=== PATIENT | male | born 1965 | race African-American/Black ===

== ENCOUNTER 2019-01-02 10:43 | Emergency (ER) | payer MEDICAID ==
[~2019-01-02] VITALS: Ht 162.6 cm; Wt 64.0 kg
[2019-01-02] MEDS ORDERED: TETANUS, DIPHTHERIA, PERTUSSIS VAC/PF 0.5ML (>7YR OLD) IM ONE (11:15)
[2019-01-02] MEDS ORDERED: LIDOCAINE 1%/EPI 1:100,000 10 ML VIAL IJ ONE (11:15)
[2019-01-02] MEDS ORDERED: LIDOCAINE HCL/EPINEPHRINE 1%-EPI 1:100,000 20 ML VIAL INFIL ONE (11:30)
[2019-01-02 14:00] VITALS: BP 136/89
[2019-01-02 15:05] LABS: BASOPHILS % 0.5 % (0.0-2.0); EOSINOPHILS % 0.1 % (0.0-5.0); HEMOGLOBIN. 14.2 g/dL (14.0-18.0); LYMPHOCYTES % 9.5 % (20.0-50.0); MEAN CORPUSCULAR HEMOGLOBIN 30.3 pg (28.0-32.0); MEAN CORPUSCULAR VOLUME 89.5 fL (80.0-94.0); MEAN PLATELET VOLUME 7.1 fl (7.4-10.4); NEUTROPHILS % 84.9 % (40.0-76.0); PLATELET 260 x1000/uL (130-400); RED BLOOD CELL COUNT 4.69 mill/uL (4.7-6.1); RED CELL DISTRIBUTION WIDTH 14.9 % (11.6-14.6)
[2019-01-02 15:06] LABS: CHLORIDE 100 mEq/L (98-107)
[2019-01-02 15:10] LABS: CLARITY URINE CLEAR (CLEAR); COLOR URINE YELLOW (YELLOW); KETONES URINE NEGATIVE (NEGATIVE); LEUKOCYTE ESTERASE URINE NEGATIVE (NEGATIVE); NITRITE URINE NEGATIVE (NEGATIVE); OCCULT BLOOD URINE NEGATIVE (NEGATIVE); PROTEIN URINE NEGATIVE (NEGATIVE); UROBILINOGEN URINE 0.2 E.U./dL (0.2-1.0)
[2019-01-02 15:11] LABS: ETHANOL BLOOD < 10 mg/dL
[2019-01-02 15:38] LABS: *AMPHETAMINES SCREEN URINE NEGATIVE (NEGATIVE); *BARBITURATES SCREEN URINE NEGATIVE (NEGATIVE); *BENZODIAZEPINES SCREEN URINE NEGATIVE (NEGATIVE); *COCAINE SCREEN URINE NEGATIVE (NEGATIVE); METHADONE URINE SCREEN NEGATIVE (NEGATIVE); OPIATES URINE SCREEN NEGATIVE (NEGATIVE)
[2019-01-02 15:39] LABS: CANNABINOID URINE SCREEN NEGATIVE (NEGATIVE); PHENCYCLIDINE URINE SCREEN NEGATIVE (NEGATIVE)
== END 2019-01-02 16:11 | disposition home or self-care (01) ==
LOC: ER 10:43
DX: S01.01XA Laceration without foreign body of scalp, initial encounter (principal); I10 Essential (primary) hypertension; G40.909 Epilepsy, unspecified, not intractable, without status epilepticus; R62.50 Unspecified lack of expected normal physiological development in childhood; W07.XXXA Fall from chair, initial encounter; Y93.89 Activity, other specified; Y92.89 Other specified places as the place of occurrence of the external cause; Z23 Encounter for immunization
CPT/HCPCS: 12004; 36415; 70450; 80053; 80305; 80320; 81003; 85025; 90471; 90715; 99284; A4217; J3490; Z7610; G0480

== ENCOUNTER 2019-01-10 07:44 | Emergency (ER) | payer MEDICAID ==
[~2019-01-10] VITALS: Ht 165.1 cm; Wt 65.0 kg
[2019-01-10 09:16] LABS: HEMATOCRIT. 37.5 % (42.0-52.0); HEMOGLOBIN. 12.7 g/dL (14.0-18.0); MEAN CORPUSCULAR HEMOGLOBIN 30.3 pg (28.0-32.0); MEAN CORPUSCULAR VOLUME 89.4 fL (80.0-94.0); MEAN PLATELET VOLUME 7.6 fl (7.4-10.4); PLATELET 282 x1000/uL (130-400); RED CELL DISTRIBUTION WIDTH 14.4 % (11.6-14.6)
[2019-01-10 09:41] LABS: PLATELET ESTIMATE NORMAL
[2019-01-10 09:49] LABS: CHLORIDE 96 mEq/L (98-107)
[2019-01-10 16:07] VITALS: BP 116/81
== END 2019-01-10 16:00 | disposition home or self-care (01) ==
LOC: ER 07:44
DX: G40.909 Epilepsy, unspecified, not intractable, without status epilepticus (principal); Z48.02 Encounter for removal of sutures; F79 Unspecified intellectual disabilities
CPT/HCPCS: 36415; 73590; 93971; 99284

== ENCOUNTER 2021-01-22 12:19 | Inpatient (IN) | payer MEDICAID, OTHER ==
[~2021-01-22] VITALS: Ht 167.6 cm; Wt 52.2 kg
[2021-01-22 14:30] LABS: BASOPHILS % 0.2 % (0.0-2.0); HEMATOCRIT. 45.5 % (42.0-52.0); HEMOGLOBIN. 14.9 g/dL (14.0-18.0); LYMPHOCYTES % 7.4 % (20.0-50.0); MEAN CORPUSCULAR HEMOGLOBIN 29.7 pg (28.0-32.0); MEAN CORPUSCULAR VOLUME 90.5 fL (80.0-94.0); MEAN PLATELET VOLUME 7.9 fl (7.4-10.4); NEUTROPHILS % 85.4 % (40.0-76.0); PLATELET 230 x1000/uL (130-400); RED BLOOD CELL COUNT 5.03 mill/uL (4.7-6.1); RED CELL DISTRIBUTION WIDTH 15.5 % (11.6-14.6)
[2021-01-22 14:33] LABS: CHLORIDE 108 mEq/L (98-107)
[2021-01-22] MEDS ORDERED: SODIUM CHLORIDE 0.9% 1,000 ML IV ONE (18:45)
[2021-01-22] MEDS ORDERED: ENOXAPARIN 60MG/0.6ML SYR SUBCUT ONE (19:30)
[2021-01-22] MEDS ORDERED: SODIUM CHLORIDE 0.9% 1,000 ML IV NR (19:45)
[2021-01-22] MEDS ORDERED: PIPERACILLIN/TAZ 3.375G PREMIX 50 ML IV ONE (19:45)
[2021-01-22] MEDS ORDERED: LEVOFLOXACIN 750MG PREMIX 150 ML IV ONE (19:45)
[2021-01-23] VITALS (12 sets, daily range): BP systolic 90–116; BP diastolic 41–76
[2021-01-23] MEDS ORDERED: DEXTROSE 50% WATER 50ML SYRINGE IV PRN (05:15)
[2021-01-23] MEDS: BLOOD SUGAR DIAGNOSTIC STRIP TEST SCH ×4 (07:30→20:30)
[2021-01-23] MEDS ORDERED: ACETAMINOPHEN 650MG SUPP PR PRN (07:30)
[2021-01-23] MEDS: INSULIN LISPRO 100 UNITS/ML SUBCUT SCH ×4 (08:00→21:00)
[2021-01-23] MEDS ORDERED: ENOXAPARIN 40MG/0.4ML SYR SUBCUT SCH (09:00)
[2021-01-23 09:44] LABS: HEMOGLOBIN. 12.2 g/dL (14.0-18.0); MEAN CORPUSCULAR HEMOGLOBIN 29.2 pg (28.0-32.0); MEAN CORPUSCULAR VOLUME 91.5 fL (80.0-94.0); MEAN PLATELET VOLUME 8.6 fl (7.4-10.4); PLATELET 137 x1000/uL (130-400); RED BLOOD CELL COUNT 4.16 mill/uL (4.7-6.1); RED CELL DISTRIBUTION WIDTH 15.4 % (11.6-14.6)
[2021-01-23 10:10] LABS: CHLORIDE 114 mEq/L (98-107)
[2021-01-23 10:19] LABS: LDL CHOLESTEROL 35 mg/dL (5-100)
[2021-01-23 10:20] LABS: HDL CHOLESTEROL 61 mg/dL (40-59)
[2021-01-23] MEDS: PIPERACILLIN/TAZOBACTAM 3.375 G in DEXTROSE 5% WATER 50 ML IV SCH ×3 (10:22→22:27)
[2021-01-23 10:31] LABS: BG BASE EXCESS 0.4 mmol/L (-2.0-2.0); BG CARBOXYHEMOGLOBIN 0.3 % (0.5-1.5); BG DEOXYHEMOGLOBIN 0.8 % (0.0-5.0); BG FRACTION INSPIRED OXYGEN 100; BG HCO3 ACT 23.5 mmol/L (22.0-26.0); BG METHEMOGLOBIN 0.7 % (0.0-1.5); BG OXYGEN SATURATION 99.2 % (92.0-98.5); BG OXYHEMOGLOBIN 98.2 % (94.0-97.0); BG PCO2 33.3 mmHg (35.0-45.0); BG PH 7.467 (7.350-7.450); BG PO2 229.7 mmHg (75.0-100.0); BG SAMPLE SITE RIGHT RADIAL; BG TOTAL HEMOGLOBIN 13.2 g/dL (12.0-18.0); BG VENT MODE MASK - BIPAP
[2021-01-23] MEDS: IPRATROPIUM/ALBUTEROL 0.5-3(2.5)MG/3ML NEB HHN SCH ×3 (12:28→20:40)
[2021-01-23] MEDS: SODIUM CHLORIDE 0.45% 1,000 ML IV SCH (14:00)
[2021-01-23 15:47] LABS: TOTAL IRON BINDING CAPACITY 369 ug/dL (250-450)
[2021-01-23] MEDS: VANCOMYCIN 1 G PREMIX 200 ML IV SCH ×2 (16:08→22:28)
[2021-01-23] MEDS: ACETYLCYSTEINE 100MG/ML 10% VIAL 4ML INH SCH (16:20)
[2021-01-23 16:21] LABS: PLATELET ESTIMATE NORMAL
[2021-01-23 16:27] LABS: FOLIC ACID (FOLATE) SERUM 5.9 ng/mL (>5.38)
[2021-01-23] MEDS: LEVETIRACETAM 500MG PREMIX 100 ML IV SCH (20:29)
[2021-01-23] MEDS: ENOXAPARIN 60MG/0.6ML SYR SUBCUT SCH (20:35)
[2021-01-23] MEDS ORDERED: DOCU-138 PO (23:29)
[2021-01-23] MEDS ORDERED: FE300LUD PO (23:29)
[2021-01-23] MEDS ORDERED: LIP40 PO (23:29)
[2021-01-23] MEDS ORDERED: IBUP-2029 PO (23:29)
[2021-01-23] MEDS ORDERED: FLUO40CA49 PO (23:29)
[2021-01-24] VITALS (99 sets, daily range): BP systolic 52–140; BP diastolic 23–94
[2021-01-24] MEDS: IPRATROPIUM/ALBUTEROL 0.5-3(2.5)MG/3ML NEB HHN SCH ×6 (00:15→20:52)
[2021-01-24 01:30] LABS: HEMATOCRIT. 34.8 % (42.0-52.0); HEMOGLOBIN. 11.6 g/dL (14.0-18.0); MEAN CORPUSCULAR HEMOGLOBIN 29.8 pg (28.0-32.0); MEAN CORPUSCULAR VOLUME 89.5 fL (80.0-94.0); MEAN PLATELET VOLUME 9.1 fl (7.4-10.4); PLATELET 127 x1000/uL (130-400); RED BLOOD CELL COUNT 3.89 mill/uL (4.7-6.1); RED CELL DISTRIBUTION WIDTH 15.6 % (11.6-14.6)
[2021-01-24] MEDS ORDERED: ALBUMIN HUMAN 25GM/100ML (25%) IV ONE (02:15)
[2021-01-24] MEDS ORDERED: NOREPINEPHRINE 8MG/250ML PMX 250 ML IV PRN (03:30)
[2021-01-24] MEDS ORDERED: NOREPINEPHRINE 8 MG in DEXTROSE 5% WATER 250 ML IV PRN (03:30)
[2021-01-24 03:32] LABS: PLATELET ESTIMATE DECREASED
[2021-01-24] MEDS: SODIUM CHLORIDE 0.45% 1,000 ML IV SCH (04:44)
[2021-01-24 04:56] LABS: HEMATOCRIT. 31.1 % (42.0-52.0); MEAN CORPUSCULAR HEMOGLOBIN 29.3 pg (28.0-32.0); MEAN CORPUSCULAR VOLUME 91.1 fL (80.0-94.0); MEAN PLATELET VOLUME 8.8 fl (7.4-10.4); PLATELET 170 x1000/uL (130-400); RED BLOOD CELL COUNT 3.41 mill/uL (4.7-6.1); RED CELL DISTRIBUTION WIDTH 15.2 % (11.6-14.6)
[2021-01-24] MEDS: PIPERACILLIN/TAZOBACTAM 3.375 G in DEXTROSE 5% WATER 50 ML IV SCH ×3 (05:42→21:22)
[2021-01-24 05:45] LABS: BG BASE EXCESS -4.5 mmol/L (-2.0-2.0); BG CARBOXYHEMOGLOBIN 0.3 % (0.5-1.5); BG DEOXYHEMOGLOBIN 2.7 % (0.0-5.0); BG FRACTION INSPIRED OXYGEN 100; BG HCO3 ACT 20.9 mmol/L (22.0-26.0); BG METHEMOGLOBIN 0.4 % (0.0-1.5); BG OXYGEN SATURATION 97.3 % (92.0-98.5); BG OXYHEMOGLOBIN 96.6 % (94.0-97.0); BG PCO2 39.5 mmHg (35.0-45.0); BG PH 7.341 (7.350-7.450); BG PO2 99.9 mmHg (75.0-100.0); BG SAMPLE SITE RIGHT BRACHIAL; BG TOTAL HEMOGLOBIN 11.2 g/dL (12.0-18.0); BG VENT MODE MASK - BIPAP
[2021-01-24] MEDS ORDERED: VASOPRESSIN 20 UNIT in SODIUM CHLORIDE 0.9% 99 ML IV PRN (06:00)
[2021-01-24] MEDS ORDERED: NOREPINEPHRINE 32 MG in DEXT 5% WATER 218 ML IV PRN (08:00)
[2021-01-24] MEDS: THIAMINE HCL 100MG TABLET PO SCH (08:16)
[2021-01-24] MEDS: ENOXAPARIN 60MG/0.6ML SYR SUBCUT SCH (08:16)
[2021-01-24] MEDS: FOLIC ACID 1MG TABLET PO SCH (08:16)
[2021-01-24] MEDS: POLYETHYLENE GLYCOL 3350 (17GM) 1 DOSE PACK PO SCH (08:17)
[2021-01-24] MEDS: LEVETIRACETAM 500MG PREMIX 100 ML IV SCH ×2 (08:17→20:26)
[2021-01-24] MEDS: INSULIN LISPRO 100 UNITS/ML SUBCUT SCH ×3 (08:19→17:15)
[2021-01-24] MEDS: BLOOD SUGAR DIAGNOSTIC STRIP TEST SCH ×4 (08:19→23:44)
[2021-01-24] MEDS: PHENYLEPHRINE 100 MG in DEXT 5% WATER 240 ML IV PRN ×2 (08:27→19:18)
[2021-01-24] MEDS: ACETYLCYSTEINE 100MG/ML 10% VIAL 4ML INH SCH (08:50)
[2021-01-24 09:30] LABS: PLATELET ESTIMATE NORMAL
[2021-01-24] MEDS ORDERED: IOHEXOL-350 100 ML BOTTLE ONE (10:29)
[2021-01-24] MEDS: DEXTROSE 5% WATER 1,000 ML IV SCH (12:25)
[2021-01-24] MEDS ORDERED: METRONIDAZOLE 500 MG PREMIX 100 ML IV SCH (12:30)
[2021-01-24 13:52] LABS: CREATINE KINASE 1731 IU/L (39-308)
[2021-01-24] MEDS ORDERED: SODIUM CHLORIDE 3% FOR INH 15ML VIAL NEB INH SCH (14:00)
[2021-01-24 17:48] LABS: CLARITY URINE CLEAR (CLEAR); COLOR URINE YELLOW (YELLOW); KETONES URINE NEGATIVE (NEGATIVE); LEUKOCYTE ESTERASE URINE NEGATIVE (NEGATIVE); NITRITE URINE NEGATIVE (NEGATIVE); OCCULT BLOOD URINE 2+ (NEGATIVE); PROTEIN URINE 1+ (NEGATIVE); SPECIFIC GRAVITY URINE 1.057 (1.005-1.030)
[2021-01-24 18:24] LABS: HEMATOCRIT. 27.6 % (42.0-52.0); HEMOGLOBIN. 8.9 g/dL (14.0-18.0); MEAN CORPUSCULAR HEMOGLOBIN 29.1 pg (28.0-32.0); MEAN CORPUSCULAR VOLUME 90.4 fL (80.0-94.0); MEAN PLATELET VOLUME 9.4 fl (7.4-10.4); PLATELET 158 x1000/uL (130-400); RED BLOOD CELL COUNT 3.05 mill/uL (4.7-6.1); RED CELL DISTRIBUTION WIDTH 15.4 % (11.6-14.6)
[2021-01-24 21:51] LABS: PLATELET ESTIMATE NORMAL
[2021-01-25] VITALS (93 sets, daily range): BP systolic 81–133; BP diastolic 34–77
[2021-01-25] MEDS: INSULIN LISPRO 100 UNITS/ML SUBCUT SCH ×4 (00:02→18:00)
[2021-01-25] MEDS: IPRATROPIUM/ALBUTEROL 0.5-3(2.5)MG/3ML NEB HHN SCH ×7 (01:17→20:25)
[2021-01-25] MEDS: ACETYLCYSTEINE 100MG/ML 10% VIAL 4ML INH SCH ×3 (01:18→17:25)
[2021-01-25] MEDS: PIPERACILLIN/TAZOBACTAM 3.375 G in DEXTROSE 5% WATER 50 ML IV SCH ×3 (05:41→22:12)
[2021-01-25 05:42] LABS: HEMATOCRIT. 27.3 % (42.0-52.0); HEMOGLOBIN. 8.9 g/dL (14.0-18.0); MEAN CORPUSCULAR HEMOGLOBIN 29.5 pg (28.0-32.0); MEAN CORPUSCULAR VOLUME 91.2 fL (80.0-94.0); MEAN PLATELET VOLUME 9.4 fl (7.4-10.4); PLATELET 150 x1000/uL (130-400); RED CELL DISTRIBUTION WIDTH 15.2 % (11.6-14.6)
[2021-01-25] MEDS: BLOOD SUGAR DIAGNOSTIC STRIP TEST SCH ×3 (05:42→18:01)
[2021-01-25 05:52] LABS: CHLORIDE 109 mEq/L (98-107)
[2021-01-25] MEDS ORDERED: POTASSIUM CHLORIDE 20MEQ/PACKET PO SCH (06:15)
[2021-01-25] MEDS: PHENYLEPHRINE 100 MG in DEXT 5% WATER 240 ML IV PRN ×2 (07:16→18:00)
[2021-01-25] MEDS: DEXTROSE 5% WATER 1,000 ML IV SCH (07:36)
[2021-01-25] MEDS ORDERED: LIDOCAINE HCL 1% 30ML VIAL (10MG/ML) ONE (08:19)
[2021-01-25] MEDS: LEVETIRACETAM 500MG PREMIX 100 ML IV SCH ×2 (08:33→20:54)
[2021-01-25] MEDS: ENOXAPARIN 30MG/0.3ML SYR SUBCUT SCH (08:33)
[2021-01-25] MEDS: THIAMINE HCL 100MG TABLET PO SCH (08:34)
[2021-01-25] MEDS: POLYETHYLENE GLYCOL 3350 (17GM) 1 DOSE PACK PO SCH (08:34)
[2021-01-25] MEDS: FOLIC ACID 1MG TABLET PO SCH (08:34)
[2021-01-25] MEDS ORDERED: ENOXAPARIN 40MG/0.4ML SYR SUBCUT SCH (09:00)
[2021-01-25] MEDS ORDERED: LACTULOSE 20G/30ML UDC PO SCH (09:45)
[2021-01-25] MEDS: PANTOPRAZOLE SODIUM 40 MG/VIAL IV SCH (10:10)
[2021-01-25] MEDS ORDERED: FUROSEMIDE 40MG/4ML VIAL IVP SCH (10:45)
[2021-01-25] MEDS: METOCLOPRAMIDE HCL 10MG/2ML VIAL IV SCH ×2 (11:13→18:01)
[2021-01-25] MEDS: VANCOMYCIN 500 MG PREMIX 100 ML IV SCH (12:34)
[2021-01-25 13:04] LABS: PLATELET ESTIMATE NORMAL
[2021-01-25 19:58] LABS: HEMATOCRIT. 22.8 % (42.0-52.0); HEMOGLOBIN. 7.8 g/dL (14.0-18.0); MEAN CORPUSCULAR HEMOGLOBIN 29.8 pg (28.0-32.0); MEAN CORPUSCULAR VOLUME 86.7 fL (80.0-94.0); MEAN PLATELET VOLUME 9.2 fl (7.4-10.4); PLATELET 142 x1000/uL (130-400); RED BLOOD CELL COUNT 2.62 mill/uL (4.7-6.1)
[2021-01-25 20:46] LABS: PLATELET ESTIMATE NORMAL
[2021-01-25 23:36] LABS: HEMATOCRIT. 22.7 % (42.0-52.0); HEMOGLOBIN. 7.7 g/dL (14.0-18.0); MEAN CORPUSCULAR HEMOGLOBIN 29.7 pg (28.0-32.0); MEAN CORPUSCULAR VOLUME 87.2 fL (80.0-94.0); MEAN PLATELET VOLUME 10.2 fl (7.4-10.4); PLATELET 115 x1000/uL (130-400)
[2021-01-26] VITALS (95 sets, daily range): BP systolic 82–123; BP diastolic 50–88
[2021-01-26] MEDS: BLOOD SUGAR DIAGNOSTIC STRIP TEST SCH ×4 (00:04→17:19)
[2021-01-26] MEDS: VANCOMYCIN 500 MG PREMIX 100 ML IV SCH ×2 (00:12→08:26)
[2021-01-26] MEDS: METOCLOPRAMIDE HCL 10MG/2ML VIAL IV SCH ×4 (00:12→17:45)
[2021-01-26] MEDS: INSULIN LISPRO 100 UNITS/ML SUBCUT SCH ×4 (00:14→17:45)
[2021-01-26] MEDS: ACETYLCYSTEINE 100MG/ML 10% VIAL 4ML INH SCH ×3 (00:42→16:18)
[2021-01-26] MEDS: IPRATROPIUM/ALBUTEROL 0.5-3(2.5)MG/3ML NEB HHN SCH ×6 (00:42→20:29)
[2021-01-26 02:29] LABS: PLATELET ESTIMATE DECREASED
[2021-01-26] MEDS: PIPERACILLIN/TAZOBACTAM 3.375 G in DEXTROSE 5% WATER 50 ML IV SCH ×3 (05:53→22:18)
[2021-01-26 06:01] LABS: CHLORIDE 104 mEq/L (98-107); HEMATOCRIT. 21.7 % (42.0-52.0); HEMOGLOBIN. 7.4 g/dL (14.0-18.0); MEAN CORPUSCULAR HEMOGLOBIN 29.7 pg (28.0-32.0); MEAN CORPUSCULAR VOLUME 87.3 fL (80.0-94.0); MEAN PLATELET VOLUME 9.6 fl (7.4-10.4); PLATELET 137 x1000/uL (130-400); RED BLOOD CELL COUNT 2.49 mill/uL (4.7-6.1)
[2021-01-26 06:08] LABS: PHOSPHORUS 1.1 mg/dL (2.5-4.9)
[2021-01-26] MEDS: PHENYLEPHRINE 100 MG in DEXT 5% WATER 240 ML IV PRN ×2 (06:08→17:45)
[2021-01-26] MEDS: FOLIC ACID 1MG TABLET PO SCH (08:21)
[2021-01-26] MEDS: PANTOPRAZOLE SODIUM 40 MG/VIAL IV SCH (08:21)
[2021-01-26] MEDS: THIAMINE HCL 100MG TABLET PO SCH (08:21)
[2021-01-26] MEDS: POLYETHYLENE GLYCOL 3350 (17GM) 1 DOSE PACK PO SCH (08:21)
[2021-01-26] MEDS: LEVETIRACETAM 500MG PREMIX 100 ML IV SCH ×2 (08:21→21:47)
[2021-01-26] MEDS ORDERED: POTASSIUM PHOS,M-BASIC-D-BASIC 30 MMOL in SODIUM CHLORIDE 0.9% 500 ML IV ONE (09:00)
[2021-01-26 10:09] LABS: ANTI-NUCLEAR ANTIBODIES DIRECT Negative (Negative)
[2021-01-26 17:10] LABS: PLATELET ESTIMATE NORMAL
[2021-01-27] VITALS (102 sets, daily range): BP systolic 83–154; BP diastolic 43–94
[2021-01-27] MEDS: BLOOD SUGAR DIAGNOSTIC STRIP TEST SCH ×5 (00:03→23:28)
[2021-01-27] MEDS: INSULIN LISPRO 100 UNITS/ML SUBCUT SCH ×5 (00:04→23:28)
[2021-01-27] MEDS: METOCLOPRAMIDE HCL 10MG/2ML VIAL IV SCH ×5 (00:05→23:28)
[2021-01-27] MEDS: ACETYLCYSTEINE 100MG/ML 10% VIAL 4ML INH SCH ×3 (00:29→16:13)
[2021-01-27] MEDS: IPRATROPIUM/ALBUTEROL 0.5-3(2.5)MG/3ML NEB HHN SCH ×6 (00:29→21:13)
[2021-01-27] MEDS: PHENYLEPHRINE 100 MG in DEXT 5% WATER 240 ML IV PRN ×2 (05:44→16:26)
[2021-01-27 05:49] LABS: HEMATOCRIT. 21.4 % (42.0-52.0); HEMOGLOBIN. 7.2 g/dL (14.0-18.0); MEAN CORPUSCULAR HEMOGLOBIN 29.6 pg (28.0-32.0); MEAN CORPUSCULAR VOLUME 88.2 fL (80.0-94.0); MEAN PLATELET VOLUME 9.6 fl (7.4-10.4); PLATELET 135 x1000/uL (130-400); RED BLOOD CELL COUNT 2.42 mill/uL (4.7-6.1)
[2021-01-27 06:05] LABS: CHLORIDE 104 mEq/L (98-107)
[2021-01-27] MEDS: PIPERACILLIN/TAZOBACTAM 3.375 G in DEXTROSE 5% WATER 50 ML IV SCH ×3 (06:21→21:07)
[2021-01-27 08:22] LABS: BG BASE EXCESS 5.9 mmol/L (-2.0-2.0); BG CARBOXYHEMOGLOBIN 0.3 % (0.5-1.5); BG FRACTION INSPIRED OXYGEN 40; BG HCO3 ACT 29.9 mmol/L (22.0-26.0); BG METHEMOGLOBIN 0.6 % (0.0-1.5); BG OXYGEN SATURATION 89.9 % (92.0-98.5); BG OXYHEMOGLOBIN 89.1 % (94.0-97.0); BG PCO2 40.8 mmHg (35.0-45.0); BG PH 7.483 (7.350-7.450); BG PO2 55.6 mmHg (75.0-100.0); BG SAMPLE SITE LEFT RADIAL; BG TOTAL HEMOGLOBIN 7.9 g/dL (12.0-18.0); BG TOTAL RESPIRATORY RATE 20 b/min; BG VENT MODE MASK - BIPAP
[2021-01-27] MEDS ORDERED: POTASSIUM PHOS,M-BASIC-D-BASIC 20 MMOL in DEXT 5% WATER 243.3333 ML IV SCH (10:00)
[2021-01-27] MEDS: THIAMINE HCL 100MG TABLET PO SCH (10:02)
[2021-01-27] MEDS: FOLIC ACID 1MG TABLET PO SCH (10:02)
[2021-01-27] MEDS: LEVETIRACETAM 500MG PREMIX 100 ML IV SCH ×2 (10:02→20:07)
[2021-01-27] MEDS: PANTOPRAZOLE SODIUM 40 MG/VIAL IV SCH (10:02)
[2021-01-27] MEDS: POLYETHYLENE GLYCOL 3350 (17GM) 1 DOSE PACK PO SCH (10:06)
[2021-01-27 13:44] LABS: PLATELET ESTIMATE NORMAL
[2021-01-27 17:04] LABS: BG BASE EXCESS 8.5 mmol/L (-2.0-2.0); BG CARBOXYHEMOGLOBIN 0.3 % (0.5-1.5); BG DEOXYHEMOGLOBIN 0.6 % (0.0-5.0); BG FRACTION INSPIRED OXYGEN 100; BG HCO3 ACT 32.8 mmol/L (22.0-26.0); BG METHEMOGLOBIN 0.3 % (0.0-1.5); BG OXYGEN SATURATION 99.4 % (92.0-98.5); BG OXYHEMOGLOBIN 98.8 % (94.0-97.0); BG PCO2 44.8 mmHg (35.0-45.0); BG PH 7.482 (7.350-7.450); BG PO2 354.9 mmHg (75.0-100.0); BG SAMPLE SITE RIGHT BRACHIAL; BG TOTAL HEMOGLOBIN 8.1 g/dL (12.0-18.0); BG TOTAL RESPIRATORY RATE 22 b/min; BG VENT MODE MASK - BIPAP
[2021-01-28] VITALS (97 sets, daily range): BP systolic 87–129; BP diastolic 52–73
[2021-01-28] MEDS: ACETYLCYSTEINE 100MG/ML 10% VIAL 4ML INH SCH ×3 (00:39→15:44)
[2021-01-28] MEDS: IPRATROPIUM/ALBUTEROL 0.5-3(2.5)MG/3ML NEB HHN SCH ×6 (00:39→20:16)
[2021-01-28 05:50] LABS: MEAN CORPUSCULAR HEMOGLOBIN 29.3 pg (28.0-32.0); MEAN CORPUSCULAR VOLUME 88.3 fL (80.0-94.0); MEAN PLATELET VOLUME 9.4 fl (7.4-10.4); PLATELET 188 x1000/uL (130-400); RED BLOOD CELL COUNT 2.35 mill/uL (4.7-6.1); RED CELL DISTRIBUTION WIDTH 15.3 % (11.6-14.6)
[2021-01-28] MEDS: INSULIN LISPRO 100 UNITS/ML SUBCUT SCH ×3 (06:00→18:00)
[2021-01-28 06:01] LABS: CHLORIDE 104 mEq/L (98-107)
[2021-01-28 06:15] LABS: HEMATOCRIT. 20.7 % (42.0-52.0); HEMOGLOBIN. 6.9 g/dL (14.0-18.0)
[2021-01-28] MEDS: BLOOD SUGAR DIAGNOSTIC STRIP TEST SCH ×4 (06:38→23:39)
[2021-01-28] MEDS: PIPERACILLIN/TAZOBACTAM 3.375 G in DEXTROSE 5% WATER 50 ML IV SCH ×3 (06:41→21:09)
[2021-01-28] MEDS: METOCLOPRAMIDE HCL 10MG/2ML VIAL IV SCH ×4 (06:41→23:39)
[2021-01-28] MEDS: POLYETHYLENE GLYCOL 3350 (17GM) 1 DOSE PACK PO SCH (09:00)
[2021-01-28] MEDS: THIAMINE HCL 100MG TABLET PO SCH (09:45)
[2021-01-28] MEDS: LEVETIRACETAM 500MG PREMIX 100 ML IV SCH ×2 (09:45→21:09)
[2021-01-28] MEDS: FOLIC ACID 1MG TABLET PO SCH (09:45)
[2021-01-28] MEDS: PANTOPRAZOLE SODIUM 40 MG/VIAL IV SCH (09:45)
[2021-01-28 10:00] LABS: PLATELET ESTIMATE NORMAL
[2021-01-28 10:39] LABS: BG BASE EXCESS 7.4 mmol/L (-2.0-2.0); BG CARBOXYHEMOGLOBIN 0.3 % (0.5-1.5); BG DEOXYHEMOGLOBIN 1.8 % (0.0-5.0); BG FRACTION INSPIRED OXYGEN 40; BG HCO3 ACT 31.4 mmol/L (22.0-26.0); BG METHEMOGLOBIN 0.7 % (0.0-1.5); BG OXYGEN SATURATION 98.2 % (92.0-98.5); BG OXYHEMOGLOBIN 97.2 % (94.0-97.0); BG PH 7.491 (7.350-7.450); BG PO2 124.3 mmHg (75.0-100.0); BG SAMPLE SITE RIGHT BRACHIAL; BG TOTAL HEMOGLOBIN 7.7 g/dL (12.0-18.0); BG VENT MODE MASK - BIPAP
[2021-01-28] MEDS: PHENYLEPHRINE 100 MG in DEXT 5% WATER 240 ML IV PRN (12:58)
[2021-01-28] MEDS: MIDODRINE HCL 5MG TABLET PO SCH ×2 (12:58→18:11)
[2021-01-28 22:14] LABS: HEMATOCRIT 26.1 % (42.0-52.0); HEMOGLOBIN 8.6 g/dL (14.0-18.0)
[2021-01-29] VITALS (94 sets, daily range): BP systolic 83–131; BP diastolic 52–73
[2021-01-29] MEDS: IPRATROPIUM/ALBUTEROL 0.5-3(2.5)MG/3ML NEB HHN SCH ×6 (00:21→20:27)
[2021-01-29] MEDS: BLOOD SUGAR DIAGNOSTIC STRIP TEST SCH ×3 (05:01→17:42)
[2021-01-29] MEDS: METOCLOPRAMIDE HCL 10MG/2ML VIAL IV SCH ×3 (05:01→17:42)
[2021-01-29] MEDS: INSULIN LISPRO 100 UNITS/ML SUBCUT SCH ×4 (05:02→18:00)
[2021-01-29 06:54] LABS: CHLORIDE 104 mEq/L (98-107)
[2021-01-29 06:57] LABS: HEMOGLOBIN. 8.5 g/dL (14.0-18.0); MEAN CORPUSCULAR HEMOGLOBIN 28.8 pg (28.0-32.0); MEAN CORPUSCULAR VOLUME 91.8 fL (80.0-94.0); MEAN PLATELET VOLUME 9.6 fl (7.4-10.4); PLATELET 217 x1000/uL (130-400); RED BLOOD CELL COUNT 2.94 mill/uL (4.7-6.1); RED CELL DISTRIBUTION WIDTH 15.3 % (11.6-14.6)
[2021-01-29] MEDS: ACETYLCYSTEINE 100MG/ML 10% VIAL 4ML INH SCH ×2 (08:38→16:53)
[2021-01-29] MEDS: FOLIC ACID 1MG TABLET PO SCH (08:45)
[2021-01-29] MEDS: PANTOPRAZOLE SODIUM 40 MG/VIAL IV SCH (08:45)
[2021-01-29] MEDS: THIAMINE HCL 100MG TABLET PO SCH (08:45)
[2021-01-29] MEDS: LEVETIRACETAM 500MG PREMIX 100 ML IV SCH ×2 (08:46→20:40)
[2021-01-29] MEDS: MIDODRINE HCL 5MG TABLET PO SCH ×3 (08:46→17:42)
[2021-01-29] MEDS: CEFEPIME 1,000 MG in DEXTROSE 5% WATER 50 ML IV SCH ×2 (12:47→22:12)
[2021-01-29] MEDS: METRONIDAZOLE 500MG TABLET PO SCH ×2 (14:57→22:12)
[2021-01-30] VITALS (95 sets, daily range): BP systolic 76–121; BP diastolic 41–80
[2021-01-30] MEDS: METOCLOPRAMIDE HCL 10MG/2ML VIAL IV SCH ×4 (00:14→17:20)
[2021-01-30] MEDS: IPRATROPIUM/ALBUTEROL 0.5-3(2.5)MG/3ML NEB HHN SCH ×6 (00:35→20:43)
[2021-01-30 01:32] LABS: PLATELET ESTIMATE NORMAL
[2021-01-30] MEDS: METRONIDAZOLE 500MG TABLET PO SCH ×3 (05:50→21:26)
[2021-01-30] MEDS: INSULIN LISPRO 100 UNITS/ML SUBCUT SCH ×3 (06:00→17:20)
[2021-01-30] MEDS: BLOOD SUGAR DIAGNOSTIC STRIP TEST SCH ×3 (06:00→17:20)
[2021-01-30 06:35] LABS: HEMATOCRIT. 24.3 % (42.0-52.0); HEMOGLOBIN. 8.2 g/dL (14.0-18.0); MEAN CORPUSCULAR HEMOGLOBIN 29.6 pg (28.0-32.0); MEAN CORPUSCULAR VOLUME 88.2 fL (80.0-94.0); MEAN PLATELET VOLUME 9.1 fl (7.4-10.4); PLATELET 283 x1000/uL (130-400); RED BLOOD CELL COUNT 2.75 mill/uL (4.7-6.1)
[2021-01-30 06:43] LABS: CHLORIDE 105 mEq/L (98-107)
[2021-01-30] MEDS: CEFEPIME 1,000 MG in DEXTROSE 5% WATER 50 ML IV SCH ×2 (08:53→21:26)
[2021-01-30] MEDS: LEVETIRACETAM 500MG PREMIX 100 ML IV SCH ×2 (08:53→21:26)
[2021-01-30] MEDS: FOLIC ACID 1MG TABLET PO SCH (08:53)
[2021-01-30] MEDS: MIDODRINE HCL 5MG TABLET PO SCH ×3 (08:53→17:20)
[2021-01-30] MEDS: PANTOPRAZOLE SODIUM 40 MG/VIAL IV SCH (08:53)
[2021-01-30] MEDS: THIAMINE HCL 100MG TABLET PO SCH (08:53)
[2021-01-30 10:09] LABS: PLATELET ESTIMATE NORMAL
[2021-01-31] VITALS (98 sets, daily range): BP systolic 82–126; BP diastolic 41–82
[2021-01-31] MEDS: IPRATROPIUM/ALBUTEROL 0.5-3(2.5)MG/3ML NEB HHN SCH ×6 (00:34→20:05)
[2021-01-31] MEDS: METOCLOPRAMIDE HCL 10MG/2ML VIAL IV SCH ×5 (00:53→23:47)
[2021-01-31] MEDS: PHENYLEPHRINE 100 MG in DEXT 5% WATER 240 ML IV PRN (00:57)
[2021-01-31] MEDS: INSULIN LISPRO 100 UNITS/ML SUBCUT SCH ×5 (05:33→23:41)
[2021-01-31] MEDS: BLOOD SUGAR DIAGNOSTIC STRIP TEST SCH ×5 (05:33→23:11)
[2021-01-31] MEDS: METRONIDAZOLE 500MG TABLET PO SCH ×3 (05:37→22:21)
[2021-01-31 06:05] LABS: HEMATOCRIT. 27.7 % (42.0-52.0); HEMOGLOBIN. 9.2 g/dL (14.0-18.0); MEAN CORPUSCULAR HEMOGLOBIN 29.2 pg (28.0-32.0); MEAN CORPUSCULAR VOLUME 88.2 fL (80.0-94.0); MEAN PLATELET VOLUME 8.9 fl (7.4-10.4); PLATELET 328 x1000/uL (130-400); RED BLOOD CELL COUNT 3.14 mill/uL (4.7-6.1)
[2021-01-31 06:14] LABS: CHLORIDE 104 mEq/L (98-107)
[2021-01-31] MEDS: FOLIC ACID 1MG TABLET PO SCH (08:13)
[2021-01-31] MEDS: MIDODRINE HCL 5MG TABLET PO SCH ×3 (08:13→17:53)
[2021-01-31] MEDS: THIAMINE HCL 100MG TABLET PO SCH (08:13)
[2021-01-31] MEDS: PANTOPRAZOLE SODIUM 40 MG/VIAL IV SCH (08:13)
[2021-01-31] MEDS: LEVETIRACETAM 500MG PREMIX 100 ML IV SCH ×2 (08:14→20:01)
[2021-01-31] MEDS: CEFEPIME 1,000 MG in DEXTROSE 5% WATER 50 ML IV SCH ×2 (08:14→20:01)
[2021-01-31] MEDS: MICAFUNGIN 100 MG in SODIUM CHLORIDE 0.9% 100 ML IV SCH (08:31)
[2021-01-31 13:32] LABS: NUCLEATED RED BLOOD CELLS 1 /100 WBC; PLATELET ESTIMATE NORMAL
[2021-01-31] MEDS: CLOPIDOGREL 75MG TABLET PO SCH (20:02)
[2021-01-31] MEDS: ACETAMINOPHEN 650MG/20.3ML UDC PO PRN (20:21)
[2021-02-01] VITALS (95 sets, daily range): BP systolic 76–134; BP diastolic 42–77
[2021-02-01] MEDS: IPRATROPIUM/ALBUTEROL 0.5-3(2.5)MG/3ML NEB HHN SCH ×6 (00:34→20:27)
[2021-02-01] MEDS: BLOOD SUGAR DIAGNOSTIC STRIP TEST SCH ×3 (05:17→17:50)
[2021-02-01] MEDS: METRONIDAZOLE 500MG TABLET PO SCH ×3 (05:23→21:02)
[2021-02-01] MEDS: METOCLOPRAMIDE HCL 10MG/2ML VIAL IV SCH ×3 (05:23→17:50)
[2021-02-01] MEDS: INSULIN LISPRO 100 UNITS/ML SUBCUT SCH ×3 (05:39→18:00)
[2021-02-01 05:48] LABS: BASOPHILS % 0.6 % (0.0-2.0); EOSINOPHILS % 0.9 % (0.0-5.0); HEMATOCRIT. 25.7 % (42.0-52.0); HEMOGLOBIN. 8.3 g/dL (14.0-18.0); LYMPHOCYTES % 7.1 % (20.0-50.0); MEAN CORPUSCULAR HEMOGLOBIN 28.5 pg (28.0-32.0); MEAN CORPUSCULAR VOLUME 88.1 fL (80.0-94.0); MEAN PLATELET VOLUME 8.8 fl (7.4-10.4); MONOCYTES % 5.3 % (2.0-8.0); NEUTROPHILS % 86.1 % (40.0-76.0); PLATELET 394 x1000/uL (130-400); RED BLOOD CELL COUNT 2.92 mill/uL (4.7-6.1); RED CELL DISTRIBUTION WIDTH 15.2 % (11.6-14.6)
[2021-02-01 05:59] LABS: CHLORIDE 105 mEq/L (98-107)
[2021-02-01] MEDS: CLOPIDOGREL 75MG TABLET PO SCH (09:36)
[2021-02-01] MEDS: PANTOPRAZOLE SODIUM 40 MG/VIAL IV SCH (09:36)
[2021-02-01] MEDS: THIAMINE HCL 100MG TABLET PO SCH (09:36)
[2021-02-01] MEDS: FOLIC ACID 1MG TABLET PO SCH (09:36)
[2021-02-01] MEDS: MIDODRINE HCL 5MG TABLET PO SCH ×3 (09:36→17:50)
[2021-02-01] MEDS: CEFEPIME 1,000 MG in DEXTROSE 5% WATER 50 ML IV SCH ×2 (09:37→20:16)
[2021-02-01] MEDS: LEVETIRACETAM 500MG PREMIX 100 ML IV SCH ×2 (09:37→20:16)
[2021-02-01] MEDS: MICAFUNGIN 100 MG in SODIUM CHLORIDE 0.9% 100 ML IV SCH (09:37)
[2021-02-02] VITALS (93 sets, daily range): BP systolic 78–124; BP diastolic 41–71
[2021-02-02] MEDS: IPRATROPIUM/ALBUTEROL 0.5-3(2.5)MG/3ML NEB HHN SCH ×6 (00:14→19:56)
[2021-02-02] MEDS: METOCLOPRAMIDE HCL 10MG/2ML VIAL IV SCH ×4 (00:53→18:07)
[2021-02-02] MEDS: BLOOD SUGAR DIAGNOSTIC STRIP TEST SCH ×4 (00:56→18:01)
[2021-02-02] MEDS: INSULIN LISPRO 100 UNITS/ML SUBCUT SCH ×4 (06:00→18:00)
[2021-02-02] MEDS: METRONIDAZOLE 500MG TABLET PO SCH ×3 (06:15→21:27)
[2021-02-02 06:26] LABS: BASOPHILS % 0.7 % (0.0-2.0); EOSINOPHILS % 0.5 % (0.0-5.0); HEMATOCRIT. 26.6 % (42.0-52.0); HEMOGLOBIN. 8.7 g/dL (14.0-18.0); LYMPHOCYTES % 7.2 % (20.0-50.0); MEAN CORPUSCULAR HEMOGLOBIN 28.9 pg (28.0-32.0); MEAN CORPUSCULAR VOLUME 88.4 fL (80.0-94.0); MEAN PLATELET VOLUME 8.8 fl (7.4-10.4); MONOCYTES % 6.5 % (2.0-8.0); NEUTROPHILS % 85.1 % (40.0-76.0); PLATELET 451 x1000/uL (130-400); RED BLOOD CELL COUNT 3.01 mill/uL (4.7-6.1); RED CELL DISTRIBUTION WIDTH 15.1 % (11.6-14.6)
[2021-02-02 07:19] LABS: CHLORIDE 101 mEq/L (98-107)
[2021-02-02] MEDS: CEFEPIME 1,000 MG in DEXTROSE 5% WATER 50 ML IV SCH ×2 (08:17→21:27)
[2021-02-02] MEDS: PANTOPRAZOLE SODIUM 40 MG/VIAL IV SCH (08:17)
[2021-02-02] MEDS: THIAMINE HCL 100MG TABLET PO SCH (08:17)
[2021-02-02] MEDS: FOLIC ACID 1MG TABLET PO SCH (08:17)
[2021-02-02] MEDS: CLOPIDOGREL 75MG TABLET PO SCH (08:17)
[2021-02-02] MEDS: MIDODRINE HCL 5MG TABLET PO SCH ×3 (08:17→18:09)
[2021-02-02] MEDS: ENOXAPARIN 30MG/0.3ML SYR SUBCUT SCH (08:18)
[2021-02-02] MEDS: LEVETIRACETAM 500MG PREMIX 100 ML IV SCH ×2 (08:40→21:27)
[2021-02-02] MEDS: MICAFUNGIN 100 MG in SODIUM CHLORIDE 0.9% 100 ML IV SCH (09:07)
[2021-02-02] MEDS: PHENYLEPHRINE 100 MG in DEXT 5% WATER 240 ML IV PRN (18:56)
[2021-02-03] VITALS (97 sets, daily range): BP systolic 69–126; BP diastolic 44–80
[2021-02-03] MEDS: IPRATROPIUM/ALBUTEROL 0.5-3(2.5)MG/3ML NEB HHN SCH ×6 (00:08→20:38)
[2021-02-03] MEDS: METOCLOPRAMIDE HCL 10MG/2ML VIAL IV SCH ×5 (00:22→23:48)
[2021-02-03] MEDS: METRONIDAZOLE 500MG TABLET PO SCH ×3 (05:59→21:31)
[2021-02-03] MEDS: INSULIN LISPRO 100 UNITS/ML SUBCUT SCH ×5 (06:00→23:49)
[2021-02-03] MEDS: BLOOD SUGAR DIAGNOSTIC STRIP TEST SCH ×4 (06:07→18:14)
[2021-02-03 06:08] LABS: CHLORIDE 101 mEq/L (98-107)
[2021-02-03 06:17] LABS: BASOPHILS % 0.9 % (0.0-2.0); EOSINOPHILS % 0.6 % (0.0-5.0); HEMATOCRIT. 25.7 % (42.0-52.0); HEMOGLOBIN. 8.4 g/dL (14.0-18.0); LYMPHOCYTES % 8.9 % (20.0-50.0); MEAN CORPUSCULAR HEMOGLOBIN 28.7 pg (28.0-32.0); MEAN CORPUSCULAR VOLUME 87.7 fL (80.0-94.0); MEAN PLATELET VOLUME 8.6 fl (7.4-10.4); MONOCYTES % 6.8 % (2.0-8.0); NEUTROPHILS % 82.8 % (40.0-76.0); PLATELET 486 x1000/uL (130-400); RED BLOOD CELL COUNT 2.93 mill/uL (4.7-6.1); RED CELL DISTRIBUTION WIDTH 15.4 % (11.6-14.6)
[2021-02-03] MEDS: THIAMINE HCL 100MG TABLET PO SCH (09:40)
[2021-02-03] MEDS: MICAFUNGIN 100 MG in SODIUM CHLORIDE 0.9% 100 ML IV SCH (09:40)
[2021-02-03] MEDS: MIDODRINE HCL 5MG TABLET PO SCH ×3 (09:40→18:13)
[2021-02-03] MEDS: LEVETIRACETAM 500MG PREMIX 100 ML IV SCH ×2 (09:40→20:23)
[2021-02-03] MEDS: CLOPIDOGREL 75MG TABLET PO SCH (09:40)
[2021-02-03] MEDS: CEFEPIME 1,000 MG in DEXTROSE 5% WATER 50 ML IV SCH ×2 (09:40→20:23)
[2021-02-03] MEDS: FOLIC ACID 1MG TABLET PO SCH (09:40)
[2021-02-03] MEDS: ENOXAPARIN 30MG/0.3ML SYR SUBCUT SCH (09:40)
[2021-02-03] MEDS: PANTOPRAZOLE SODIUM 40 MG/VIAL IV SCH (09:40)
[2021-02-03 10:53] LABS: BG BASE EXCESS 7.7 mmol/L (-2.0-2.0); BG CARBOXYHEMOGLOBIN 0.3 % (0.5-1.5); BG DEOXYHEMOGLOBIN 0.9 % (0.0-5.0); BG FRACTION INSPIRED OXYGEN 36; BG METHEMOGLOBIN 0.1 % (0.0-1.5); BG OXYGEN SATURATION 99.1 % (92.0-98.5); BG OXYHEMOGLOBIN 98.7 % (94.0-97.0); BG PCO2 43.8 mmHg (35.0-45.0); BG PH 7.481 (7.350-7.450); BG PO2 153.5 mmHg (75.0-100.0); BG SAMPLE SITE RIGHT RADIAL; BG TOTAL HEMOGLOBIN 9.2 g/dL (12.0-18.0); BG VENT MODE NASAL CANNULA
[2021-02-03] MEDS: METHYLPREDNISOLONE SOD SUCC 40 MG/ML VIAL IV SCH ×2 (11:50→19:51)
[2021-02-04] VITALS (75 sets, daily range): BP systolic 84–127; BP diastolic 48–86
[2021-02-04] MEDS: IPRATROPIUM/ALBUTEROL 0.5-3(2.5)MG/3ML NEB HHN SCH ×4 (00:27→20:30)
[2021-02-04] MEDS: METHYLPREDNISOLONE SOD SUCC 40 MG/ML VIAL IV SCH ×3 (03:11→18:27)
[2021-02-04] MEDS: METOCLOPRAMIDE HCL 10MG/2ML VIAL IV SCH ×3 (06:32→17:05)
[2021-02-04] MEDS: BLOOD SUGAR DIAGNOSTIC STRIP TEST SCH ×4 (06:35→17:05)
[2021-02-04] MEDS: INSULIN LISPRO 100 UNITS/ML SUBCUT SCH ×3 (07:03→17:08)
[2021-02-04 07:45] LABS: HEMATOCRIT. 27.3 % (42.0-52.0); HEMOGLOBIN. 8.8 g/dL (14.0-18.0); MEAN CORPUSCULAR HEMOGLOBIN 28.3 pg (28.0-32.0); MEAN CORPUSCULAR VOLUME 87.8 fL (80.0-94.0); MEAN PLATELET VOLUME 8.7 fl (7.4-10.4); PLATELET 601 x1000/uL (130-400); RED BLOOD CELL COUNT 3.11 mill/uL (4.7-6.1); RED CELL DISTRIBUTION WIDTH 15.5 % (11.6-14.6)
[2021-02-04 07:52] LABS: CHLORIDE 100 mEq/L (98-107)
[2021-02-04] MEDS: MICAFUNGIN 100 MG in SODIUM CHLORIDE 0.9% 100 ML IV SCH (08:27)
[2021-02-04] MEDS: LEVETIRACETAM 500MG PREMIX 100 ML IV SCH ×2 (08:28→20:17)
[2021-02-04] MEDS: MIDODRINE HCL 5MG TABLET PO SCH ×3 (08:28→17:05)
[2021-02-04] MEDS: FOLIC ACID 1MG TABLET PO SCH (08:28)
[2021-02-04] MEDS: CLOPIDOGREL 75MG TABLET PO SCH (08:28)
[2021-02-04] MEDS: ENOXAPARIN 30MG/0.3ML SYR SUBCUT SCH (08:29)
[2021-02-04] MEDS: PANTOPRAZOLE SODIUM 40 MG/VIAL IV SCH (08:39)
[2021-02-04] MEDS: THIAMINE HCL 100MG TABLET PO SCH (08:39)
[2021-02-04] MEDS ORDERED: SODIUM POLYSTYRENE SULFONATE 15 G/60 ML BOT PO NR (12:00)
[2021-02-04 14:28] LABS: PLATELET ESTIMATE INCREASED
[2021-02-05] VITALS (25 sets, daily range): BP systolic 89–150; BP diastolic 57–81
[2021-02-05] MEDS: BLOOD SUGAR DIAGNOSTIC STRIP TEST SCH ×4 (00:41→18:00)
[2021-02-05] MEDS: METOCLOPRAMIDE HCL 10MG/2ML VIAL IV SCH ×4 (00:46→19:03)
[2021-02-05] MEDS: INSULIN LISPRO 100 UNITS/ML SUBCUT SCH ×4 (00:47→18:00)
[2021-02-05] MEDS: METHYLPREDNISOLONE SOD SUCC 40 MG/ML VIAL IV SCH ×3 (03:59→19:03)
[2021-02-05] MEDS: IPRATROPIUM/ALBUTEROL 0.5-3(2.5)MG/3ML NEB HHN SCH ×3 (08:00→20:42)
[2021-02-05] MEDS: ENOXAPARIN 30MG/0.3ML SYR SUBCUT SCH (09:50)
[2021-02-05] MEDS: PANTOPRAZOLE SODIUM 40 MG/VIAL IV SCH (09:50)
[2021-02-05] MEDS: THIAMINE HCL 100MG TABLET PO SCH (09:50)
[2021-02-05] MEDS: MIDODRINE HCL 5MG TABLET PO SCH ×3 (09:50→16:51)
[2021-02-05] MEDS: FOLIC ACID 1MG TABLET PO SCH (09:51)
[2021-02-05 10:16] LABS: HEMATOCRIT. 26.4 % (42.0-52.0); HEMOGLOBIN. 8.6 g/dL (14.0-18.0); MEAN CORPUSCULAR HEMOGLOBIN 28.3 pg (28.0-32.0); MEAN CORPUSCULAR VOLUME 86.5 fL (80.0-94.0); MEAN PLATELET VOLUME 8.3 fl (7.4-10.4); PLATELET 628 x1000/uL (130-400); RED BLOOD CELL COUNT 3.05 mill/uL (4.7-6.1); RED CELL DISTRIBUTION WIDTH 15.2 % (11.6-14.6)
[2021-02-05 10:38] LABS: CHLORIDE 99 mEq/L (98-107)
[2021-02-05] MEDS: CLOPIDOGREL 75MG TABLET PO SCH (11:06)
[2021-02-05] MEDS: LEVETIRACETAM 500MG PREMIX 100 ML IV SCH ×2 (11:56→21:54)
[2021-02-05] MEDS: MICAFUNGIN 100 MG in SODIUM CHLORIDE 0.9% 100 ML IV SCH (12:15)
[2021-02-05] MEDS ORDERED: LORAZEPAM 2MG/ML CPJ IV PRN (13:30)
[2021-02-05 20:31] LABS: PLATELET ESTIMATE INCREASED
[2021-02-06] VITALS (14 sets, daily range): BP systolic 101–136; BP diastolic 58–80
[2021-02-06] MEDS: METOCLOPRAMIDE HCL 10MG/2ML VIAL IV SCH ×4 (00:22→17:59)
[2021-02-06] MEDS: IPRATROPIUM/ALBUTEROL 0.5-3(2.5)MG/3ML NEB HHN SCH ×4 (01:06→20:23)
[2021-02-06] MEDS: METHYLPREDNISOLONE SOD SUCC 40 MG/ML VIAL IV SCH ×3 (03:31→20:23)
[2021-02-06] MEDS: BLOOD SUGAR DIAGNOSTIC STRIP TEST SCH ×4 (06:02→18:38)
[2021-02-06] MEDS: INSULIN LISPRO 100 UNITS/ML SUBCUT SCH ×4 (06:06→18:00)
[2021-02-06] MEDS: CEFEPIME 2,000 MG in DEXT 5% WATER 100 ML IV SCH ×2 (07:52→20:24)
[2021-02-06 08:41] LABS: CHLORIDE 102 mEq/L (98-107)
[2021-02-06 08:42] LABS: HEMATOCRIT. 27.1 % (42.0-52.0); HEMOGLOBIN. 8.9 g/dL (14.0-18.0); MEAN CORPUSCULAR HEMOGLOBIN 28.6 pg (28.0-32.0); MEAN CORPUSCULAR VOLUME 87.3 fL (80.0-94.0); MEAN PLATELET VOLUME 8.2 fl (7.4-10.4); PLATELET 600 x1000/uL (130-400); RED CELL DISTRIBUTION WIDTH 15.5 % (11.6-14.6)
[2021-02-06] MEDS: ENOXAPARIN 30MG/0.3ML SYR SUBCUT SCH (09:19)
[2021-02-06] MEDS: LEVETIRACETAM 500MG PREMIX 100 ML IV SCH ×2 (09:19→22:40)
[2021-02-06] MEDS: CLOPIDOGREL 75MG TABLET PO SCH (09:19)
[2021-02-06] MEDS: MIDODRINE HCL 5MG TABLET PO SCH ×3 (09:19→17:00)
[2021-02-06] MEDS: PANTOPRAZOLE SODIUM 40 MG/VIAL IV SCH (09:19)
[2021-02-06] MEDS: FOLIC ACID 1MG TABLET PO SCH (09:19)
[2021-02-06] MEDS: THIAMINE HCL 100MG TABLET PO SCH (09:19)
[2021-02-06 22:55] LABS: PLATELET ESTIMATE INCREASED
[2021-02-07] VITALS (12 sets, daily range): BP systolic 117–136; BP diastolic 70–83
[2021-02-07] MEDS: METOCLOPRAMIDE HCL 10MG/2ML VIAL IV SCH ×3 (00:09→11:44)
[2021-02-07] MEDS: INSULIN LISPRO 100 UNITS/ML SUBCUT SCH ×4 (00:25→17:33)
[2021-02-07] MEDS: BLOOD SUGAR DIAGNOSTIC STRIP TEST SCH ×4 (00:27→17:39)
[2021-02-07] MEDS: IPRATROPIUM/ALBUTEROL 0.5-3(2.5)MG/3ML NEB HHN SCH ×4 (01:47→21:37)
[2021-02-07] MEDS: METHYLPREDNISOLONE SOD SUCC 40 MG/ML VIAL IV SCH ×3 (03:30→18:41)
[2021-02-07 05:58] LABS: HEMATOCRIT. 27.8 % (42.0-52.0); HEMOGLOBIN. 9.2 g/dL (14.0-18.0); MEAN CORPUSCULAR HEMOGLOBIN 28.8 pg (28.0-32.0); MEAN PLATELET VOLUME 8.3 fl (7.4-10.4); PLATELET 554 x1000/uL (130-400); RED BLOOD CELL COUNT 3.19 mill/uL (4.7-6.1); RED CELL DISTRIBUTION WIDTH 15.3 % (11.6-14.6)
[2021-02-07 06:35] LABS: CHLORIDE 103 mEq/L (98-107)
[2021-02-07] MEDS: CEFEPIME 2,000 MG in DEXT 5% WATER 100 ML IV SCH ×2 (08:07→22:25)
[2021-02-07] MEDS: ENOXAPARIN 30MG/0.3ML SYR SUBCUT SCH (09:28)
[2021-02-07] MEDS: THIAMINE HCL 100MG TABLET PO SCH (09:29)
[2021-02-07] MEDS: LEVETIRACETAM 500MG PREMIX 100 ML IV SCH ×2 (09:29→22:25)
[2021-02-07] MEDS: FOLIC ACID 1MG TABLET PO SCH (09:29)
[2021-02-07] MEDS: MIDODRINE HCL 5MG TABLET PO SCH ×3 (09:29→17:00)
[2021-02-07] MEDS: CLOPIDOGREL 75MG TABLET PO SCH (09:29)
[2021-02-07] MEDS: PANTOPRAZOLE SODIUM 40 MG/VIAL IV SCH (09:29)
[2021-02-07 13:32] LABS: PLATELET ESTIMATE INCREASED
[2021-02-08] VITALS (12 sets, daily range): BP systolic 104–136; BP diastolic 66–82
[2021-02-08] MEDS: BLOOD SUGAR DIAGNOSTIC STRIP TEST SCH ×4 (00:54→17:19)
[2021-02-08] MEDS: IPRATROPIUM/ALBUTEROL 0.5-3(2.5)MG/3ML NEB HHN SCH ×4 (03:05→20:59)
[2021-02-08] MEDS: INSULIN LISPRO 100 UNITS/ML SUBCUT SCH ×4 (06:00→17:24)
[2021-02-08] MEDS: METHYLPREDNISOLONE SOD SUCC 40 MG/ML VIAL IV SCH ×3 (06:23→22:53)
[2021-02-08 06:36] LABS: HEMOGLOBIN. 9.8 g/dL (14.0-18.0); MEAN CORPUSCULAR HEMOGLOBIN 27.8 pg (28.0-32.0); MEAN CORPUSCULAR VOLUME 87.7 fL (80.0-94.0); MEAN PLATELET VOLUME 7.9 fl (7.4-10.4); PLATELET 528 x1000/uL (130-400); RED BLOOD CELL COUNT 3.53 mill/uL (4.7-6.1); RED CELL DISTRIBUTION WIDTH 15.7 % (11.6-14.6)
[2021-02-08 07:20] LABS: CHLORIDE 100 mEq/L (98-107)
[2021-02-08] MEDS: CEFEPIME 2,000 MG in DEXT 5% WATER 100 ML IV SCH ×2 (07:41→20:01)
[2021-02-08] MEDS: PANTOPRAZOLE SODIUM 40 MG/VIAL IV SCH (09:00)
[2021-02-08] MEDS: LEVETIRACETAM 500MG PREMIX 100 ML IV SCH ×2 (10:12→20:59)
[2021-02-08] MEDS: ENOXAPARIN 30MG/0.3ML SYR SUBCUT SCH (10:12)
[2021-02-08] MEDS: CLOPIDOGREL 75MG TABLET PO SCH (10:13)
[2021-02-08] MEDS: MIDODRINE HCL 5MG TABLET PO SCH ×3 (10:13→17:19)
[2021-02-08] MEDS: THIAMINE HCL 100MG TABLET PO SCH (10:13)
[2021-02-08] MEDS: FOLIC ACID 1MG TABLET PO SCH (10:13)
[2021-02-08 13:09] LABS: BARBITURATE SCREEN Negative ug/mL (Cutoff:0.1); BENZODIAZEPINE SCREEN Negative ng/mL (Cutoff:20); OPIATES SCREEN Negative ng/mL (Cutoff:5); PHENCYCLIDINE SCREEN Negative ng/mL (Cutoff:8)
[2021-02-08 16:34] LABS: PLATELET ESTIMATE INCREASED
[2021-02-09] VITALS (14 sets, daily range): BP systolic 74–136; BP diastolic 49–76
[2021-02-09] MEDS: IPRATROPIUM/ALBUTEROL 0.5-3(2.5)MG/3ML NEB HHN SCH ×4 (01:24→21:32)
[2021-02-09] MEDS: INSULIN LISPRO 100 UNITS/ML SUBCUT SCH ×5 (06:00→23:19)
[2021-02-09] MEDS: BLOOD SUGAR DIAGNOSTIC STRIP TEST SCH ×5 (06:05→23:04)
[2021-02-09 06:36] LABS: HEMATOCRIT 34.1 % (42.0-52.0); HEMOGLOBIN 10.9 g/dL (14.0-18.0); MEAN CORPUSCULAR HEMOGLOBIN 28.2 pg (28.0-32.0); PLATELET 554 x1000/uL (130-400); RED BLOOD CELL COUNT 3.88 mill/uL (4.7-6.1); RED CELL DISTRIBUTION WIDTH 15.4 % (11.6-14.6)
[2021-02-09] MEDS ORDERED: SODIUM CHLORIDE 0.9% 500 ML IV ONE (06:45)
[2021-02-09] MEDS ORDERED: ALBUMIN HUMAN 25GM/100ML (25%) IV SCH (06:45)
[2021-02-09 06:59] LABS: PROTHROMBIN TIME 11.2 sec (9.6-11.0)
[2021-02-09 07:08] LABS: CHLORIDE 99 mEq/L (98-107)
[2021-02-09] MEDS ORDERED: BACTERIOSTATIC SODIUM CHLORIDE 0.9% 30ML VIAL IJ ONE (08:15)
[2021-02-09] MEDS: CLOPIDOGREL 75MG TABLET PO SCH (09:00)
[2021-02-09] MEDS: ENOXAPARIN 30MG/0.3ML SYR SUBCUT SCH (09:00)
[2021-02-09] MEDS: FOLIC ACID 1MG TABLET PO SCH (09:00)
[2021-02-09] MEDS: THIAMINE HCL 100MG TABLET PO SCH (09:00)
[2021-02-09] MEDS: MIDODRINE HCL 5MG TABLET PO SCH ×3 (09:20→21:50)
[2021-02-09] MEDS: CEFEPIME 2,000 MG in DEXT 5% WATER 100 ML IV SCH ×2 (09:20→19:58)
[2021-02-09] MEDS: PANTOPRAZOLE SODIUM 40 MG/VIAL IV SCH (09:21)
[2021-02-09] MEDS ORDERED: KCL 20MEQ/100ML PREMIX 100 ML IV NR (11:00)
[2021-02-09] MEDS: LEVETIRACETAM 500MG PREMIX 100 ML IV SCH ×2 (11:20→19:58)
[2021-02-09] MEDS: METHYLPREDNISOLONE SOD SUCC 40 MG/ML VIAL IV SCH ×2 (12:10→23:04)
[2021-02-09] MEDS ORDERED: MIDAZOLAM HCL 5 MG/5 ML VIAL IV PRN (12:54)
[2021-02-09] MEDS ORDERED: FENTANYL CITRATE/PF 50MCG/ML 2ML VIAL IV PRN (12:55)
[2021-02-09] MEDS ORDERED: MIDAZOLAM HCL 5 MG/5 ML VIAL ONE (13:01)
[2021-02-09] MEDS ORDERED: FENTANYL CITRATE/PF 50MCG/ML 2ML VIAL ONE (13:01)
[2021-02-09] MEDS: DEXT 5%/0.9% NACL 1,000 ML IV SCH (19:15)
[2021-02-10] VITALS (12 sets, daily range): BP systolic 95–125; BP diastolic 55–84
[2021-02-10] MEDS: IPRATROPIUM/ALBUTEROL 0.5-3(2.5)MG/3ML NEB HHN SCH ×4 (02:10→20:32)
[2021-02-10] MEDS: METOCLOPRAMIDE HCL 10MG/2ML VIAL IV SCH ×3 (05:21→18:43)
[2021-02-10] MEDS: MIDODRINE HCL 5MG TABLET PO SCH ×3 (05:21→22:00)
[2021-02-10] MEDS: BLOOD SUGAR DIAGNOSTIC STRIP TEST SCH ×3 (06:04→18:19)
[2021-02-10] MEDS: INSULIN LISPRO 100 UNITS/ML SUBCUT SCH ×3 (06:08→18:44)
[2021-02-10 06:25] LABS: HEMATOCRIT. 32.3 % (42.0-52.0); HEMOGLOBIN. 10.5 g/dL (14.0-18.0); MEAN CORPUSCULAR HEMOGLOBIN 28.9 pg (28.0-32.0); MEAN CORPUSCULAR VOLUME 88.9 fL (80.0-94.0); MEAN PLATELET VOLUME 8.3 fl (7.4-10.4); PLATELET 438 x1000/uL (130-400); RED BLOOD CELL COUNT 3.63 mill/uL (4.7-6.1); RED CELL DISTRIBUTION WIDTH 16.1 % (11.6-14.6)
[2021-02-10 06:27] LABS: CHLORIDE 104 mEq/L (98-107)
[2021-02-10] MEDS: CEFEPIME 2,000 MG in DEXT 5% WATER 100 ML IV SCH ×2 (08:28→20:53)
[2021-02-10] MEDS: LEVETIRACETAM 500MG PREMIX 100 ML IV SCH ×2 (09:43→20:54)
[2021-02-10] MEDS: ENOXAPARIN 30MG/0.3ML SYR SUBCUT SCH (09:43)
[2021-02-10] MEDS: FOLIC ACID 1MG TABLET PO SCH (09:44)
[2021-02-10] MEDS: PANTOPRAZOLE SODIUM 40 MG/VIAL IV SCH (09:44)
[2021-02-10] MEDS: CLOPIDOGREL 75MG TABLET PO SCH (09:44)
[2021-02-10] MEDS: THIAMINE HCL 100MG TABLET PO SCH (09:44)
[2021-02-10] MEDS: METHYLPREDNISOLONE SOD SUCC 40 MG/ML VIAL IV SCH (12:21)
[2021-02-10] MEDS: DEXT 5%/0.9% NACL 1,000 ML IV SCH (12:22)
[2021-02-10 16:37] LABS: PLATELET ESTIMATE INCREASED
[2021-02-11] VITALS (7 sets, daily range): BP systolic 96–119; BP diastolic 55–72
[2021-02-11] MEDS: BLOOD SUGAR DIAGNOSTIC STRIP TEST SCH ×5 (00:17→23:41)
[2021-02-11] MEDS: METHYLPREDNISOLONE SOD SUCC 40 MG/ML VIAL IV SCH (00:17)
[2021-02-11] MEDS: METOCLOPRAMIDE HCL 10MG/2ML VIAL IV SCH ×5 (00:17→23:40)
[2021-02-11] MEDS: IPRATROPIUM/ALBUTEROL 0.5-3(2.5)MG/3ML NEB HHN SCH ×4 (01:10→20:18)
[2021-02-11] MEDS: DEXT 5%/0.9% NACL 1,000 ML IV SCH (03:23)
[2021-02-11] MEDS: MIDODRINE HCL 5MG TABLET PO SCH ×3 (05:23→23:41)
[2021-02-11] MEDS: INSULIN LISPRO 100 UNITS/ML SUBCUT SCH ×5 (05:39→23:41)
[2021-02-11 06:34] LABS: CHLORIDE 102 mEq/L (98-107)
[2021-02-11 06:38] LABS: HEMATOCRIT. 31.9 % (42.0-52.0); HEMOGLOBIN. 10.4 g/dL (14.0-18.0); MEAN CORPUSCULAR HEMOGLOBIN 28.9 pg (28.0-32.0); MEAN CORPUSCULAR VOLUME 88.5 fL (80.0-94.0); MEAN PLATELET VOLUME 8.4 fl (7.4-10.4); PLATELET 423 x1000/uL (130-400); RED CELL DISTRIBUTION WIDTH 16.5 % (11.6-14.6)
[2021-02-11] MEDS: PANTOPRAZOLE SODIUM 40 MG/VIAL IV SCH (09:56)
[2021-02-11] MEDS: CLOPIDOGREL 75MG TABLET PO SCH (09:57)
[2021-02-11] MEDS: FOLIC ACID 1MG TABLET PO SCH (09:57)
[2021-02-11] MEDS: THIAMINE HCL 100MG TABLET PO SCH (09:57)
[2021-02-11] MEDS: ENOXAPARIN 40MG/0.4ML SYR SUBCUT SCH (09:57)
[2021-02-11] MEDS: LEVETIRACETAM 500MG PREMIX 100 ML IV SCH ×2 (09:58→20:27)
[2021-02-11 17:35] LABS: PLATELET ESTIMATE SLIGHTLY INCREASED
[2021-02-12] VITALS: BP 86/49
[2021-02-12] MEDS: IPRATROPIUM/ALBUTEROL 0.5-3(2.5)MG/3ML NEB HHN SCH ×4 (02:15→19:55)
[2021-02-12 04:00] VITALS: BP 91/48
[2021-02-12] MEDS: METOCLOPRAMIDE HCL 10MG/2ML VIAL IV SCH ×3 (05:27→18:40)
[2021-02-12] MEDS: ACETAMINOPHEN 650MG/20.3ML UDC PO PRN (05:27)
[2021-02-12] MEDS: MIDODRINE HCL 5MG TABLET PO SCH ×3 (05:28→21:03)
[2021-02-12] MEDS: BLOOD SUGAR DIAGNOSTIC STRIP TEST SCH ×3 (05:28→18:40)
[2021-02-12] MEDS: INSULIN LISPRO 100 UNITS/ML SUBCUT SCH ×3 (05:36→18:41)
[2021-02-12 06:50] LABS: CHLORIDE 103 mEq/L (98-107)
[2021-02-12 06:51] LABS: HEMATOCRIT. 31.4 % (42.0-52.0); MEAN CORPUSCULAR HEMOGLOBIN 28.5 pg (28.0-32.0); MEAN CORPUSCULAR VOLUME 89.4 fL (80.0-94.0); MEAN PLATELET VOLUME 8.3 fl (7.4-10.4); PLATELET 404 x1000/uL (130-400); RED BLOOD CELL COUNT 3.51 mill/uL (4.7-6.1)
[2021-02-12 08:00] VITALS: BP 92/60
[2021-02-12] MEDS ORDERED: POTASSIUM CHLORIDE INJ 40 MEQ in DEXT 5% WATER 250 ML IV ONE (08:30)
[2021-02-12] MEDS ORDERED: PREDNISONE 20MG TABLET PO SCH (09:00)
[2021-02-12] MEDS ORDERED: METHYLPREDNISOLONE SOD SUCC 40 MG/ML VIAL IV SCH (09:00)
[2021-02-12] MEDS: PANTOPRAZOLE SODIUM 40 MG/VIAL IV SCH (09:45)
[2021-02-12] MEDS: ENOXAPARIN 40MG/0.4ML SYR SUBCUT SCH (09:45)
[2021-02-12] MEDS: CLOPIDOGREL 75MG TABLET PO SCH (09:46)
[2021-02-12] MEDS: LEVETIRACETAM 500MG PREMIX 100 ML IV SCH ×2 (09:46→21:03)
[2021-02-12] MEDS: THIAMINE HCL 100MG TABLET PO SCH (09:46)
[2021-02-12] MEDS: FOLIC ACID 1MG TABLET PO SCH (09:46)
[2021-02-12] MEDS: KCL 20MEQ/100ML PREMIX 100 ML IV SCH ×2 (10:48→13:13)
[2021-02-12 12:00] VITALS: BP 88/51
[2021-02-12 15:24] LABS: PLATELET ESTIMATE NORMAL
[2021-02-12 16:00] VITALS: BP 99/52
[2021-02-12 20:00] VITALS: BP_SYST 79; BP_SYST 99; BP_DIAS 52; BP_DIAS 53
[2021-02-13] VITALS (7 sets, daily range): BP systolic 91–127; BP diastolic 52–76
[2021-02-13] MEDS: METOCLOPRAMIDE HCL 10MG/2ML VIAL IV SCH ×4 (00:05→17:30)
[2021-02-13] MEDS: BLOOD SUGAR DIAGNOSTIC STRIP TEST SCH ×4 (00:06→17:29)
[2021-02-13] MEDS: IPRATROPIUM/ALBUTEROL 0.5-3(2.5)MG/3ML NEB HHN SCH ×3 (01:58→15:14)
[2021-02-13] MEDS: MIDODRINE HCL 5MG TABLET PO SCH ×2 (05:50→14:01)
[2021-02-13] MEDS: INSULIN LISPRO 100 UNITS/ML SUBCUT SCH ×4 (05:51→17:29)
[2021-02-13 06:18] LABS: HEMATOCRIT. 32.5 % (42.0-52.0); HEMOGLOBIN. 10.6 g/dL (14.0-18.0); MEAN CORPUSCULAR HEMOGLOBIN 29.2 pg (28.0-32.0); MEAN CORPUSCULAR VOLUME 89.3 fL (80.0-94.0); MEAN PLATELET VOLUME 8.4 fl (7.4-10.4); PLATELET 371 x1000/uL (130-400); RED BLOOD CELL COUNT 3.64 mill/uL (4.7-6.1); RED CELL DISTRIBUTION WIDTH 17.5 % (11.6-14.6)
[2021-02-13 07:02] LABS: CHLORIDE 103 mEq/L (98-107)
[2021-02-13] MEDS: ENOXAPARIN 40MG/0.4ML SYR SUBCUT SCH (08:33)
[2021-02-13] MEDS: FOLIC ACID 1MG TABLET PO SCH (08:34)
[2021-02-13] MEDS: CLOPIDOGREL 75MG TABLET PO SCH (08:34)
[2021-02-13] MEDS: PANTOPRAZOLE SODIUM 40 MG/VIAL IV SCH (08:34)
[2021-02-13] MEDS: THIAMINE HCL 100MG TABLET PO SCH (08:35)
[2021-02-13] MEDS ORDERED: PREDNISONE 10MG TABLET PO SCH (09:00)
[2021-02-13] MEDS ORDERED: LEVETIRACETAM 500MG/5ML CUP GT SCH (09:00)
[2021-02-13] MEDS ORDERED: POTASSIUM CHLORIDE 20MEQ/PACKET PO NR (10:45)
[2021-02-13] MEDS ORDERED: CLOP75TA15 PO (12:33)
[2021-02-13] MEDS ORDERED: THIA100T72 PO (12:33)
[2021-02-13] MEDS ORDERED: FOLI-43 PO (12:33)
[2021-02-13] MEDS ORDERED: KEPPSOL GT (12:33)
[2021-02-13] MEDS ORDERED: MIDO5TAB4 PO (12:33)
[2021-02-13 14:20] LABS: PLATELET ESTIMATE NORMAL
== END 2021-02-13 19:23 | DRG 720 ==
LOC: ER 12:19 → EDBEDREQ 19:36 → 5EST 21:29 → EDBEDREQTM 21:32 → EDBEDREQSVC 21:32 → ENRESERV 22:18 → CVICU 01-24 02:45 → 5EST 02-05 03:21
PROVIDERS: ADMIT Internal Medicine; ATTEND Internal Medicine
PROC: 5A09357 Assistance with Respiratory Ventilation, Less than 24 Consecutive Hours, Continuous Positive Airway Pressure (ICD-10-PCS; 2021-01-22)
PROC: 5A09357 Assistance with Respiratory Ventilation, Less than 24 Consecutive Hours, Continuous Positive Airway Pressure (ICD-10-PCS; 2021-01-23)
PROC: 5A09557 Assistance with Respiratory Ventilation, Greater than 96 Consecutive Hours, Continuous Positive Airway Pressure (ICD-10-PCS; 2021-01-24)
PROC: 4A10X4Z Monitoring of Central Nervous Electrical Activity, External Approach (ICD-10-PCS; 2021-01-25)
PROC: 02HV33Z Insertion of Infusion Device into Superior Vena Cava, Percutaneous Approach (ICD-10-PCS; 2021-01-25)
PROC: B548ZZA Ultrasonography of Superior Vena Cava, Guidance (ICD-10-PCS; 2021-01-25)
PROC: 30233N1 Transfusion of Nonautologous Red Blood Cells into Peripheral Vein, Percutaneous Approach (ICD-10-PCS; 2021-01-28)
PROC: 5A09357 Assistance with Respiratory Ventilation, Less than 24 Consecutive Hours, Continuous Positive Airway Pressure (ICD-10-PCS; 2021-01-31)
PROC: 5A09357 Assistance with Respiratory Ventilation, Less than 24 Consecutive Hours, Continuous Positive Airway Pressure (ICD-10-PCS; 2021-02-01)
PROC: 0DH63UZ Insertion of Feeding Device into Stomach, Percutaneous Approach (ICD-10-PCS; principal; 2021-02-09)
PROC: 0DB98ZX Excision of Duodenum, Via Natural or Artificial Opening Endoscopic, Diagnostic (ICD-10-PCS; 2021-02-09)
PROC: 0DB78ZX Excision of Stomach, Pylorus, Via Natural or Artificial Opening Endoscopic, Diagnostic (ICD-10-PCS; 2021-02-09)
DX: A41.89 Other specified sepsis (principal); N17.0 Acute kidney failure with tubular necrosis; J96.01 Acute respiratory failure with hypoxia; R65.21 Severe sepsis with septic shock; J69.0 Pneumonitis due to inhalation of food and vomit; G92.8 Other toxic encephalopathy; E83.39 Other disorders of phosphorus metabolism; D51.9 Vitamin B12 deficiency anemia, unspecified; J15.9 Unspecified bacterial pneumonia; K59.39 Other megacolon; I13.0 Hypertensive heart and chronic kidney disease with heart failure and stage 1 through stage 4 chronic kidney disease, or unspecified chronic kidney disease; E11.22 Type 2 diabetes mellitus with diabetic chronic kidney disease; E78.5 Hyperlipidemia, unspecified; G40.909 Epilepsy, unspecified, not intractable, without status epilepticus; I50.22 Chronic systolic (congestive) heart failure; E87.6 Hypokalemia; K82.8 Other specified diseases of gallbladder; N18.9 Chronic kidney disease, unspecified; K29.50 Unspecified chronic gastritis without bleeding; N28.1 Cyst of kidney, acquired; D72.819 Decreased white blood cell count, unspecified; D50.9 Iron deficiency anemia, unspecified; K31.A0 Gastric intestinal metaplasia, unspecified; R41.89 Other symptoms and signs involving cognitive functions and awareness; Z20.822 Contact with and (suspected) exposure to COVID-19; R13.12 Dysphagia, oropharyngeal phase; K80.20 Calculus of gallbladder without cholecystitis without obstruction; L85.3 Xerosis cutis; E11.65 Type 2 diabetes mellitus with hyperglycemia; K56.41 Fecal impaction; E87.3 Alkalosis; I63.81 Other cerebral infarction due to occlusion or stenosis of small artery; L89.896 Pressure-induced deep tissue damage of other site; L89.899 Pressure ulcer of other site, unspecified stage; L89.516 Pressure-induced deep tissue damage of right ankle; L89.626 Pressure-induced deep tissue damage of left heel; Z87.828 Personal history of other (healed) physical injury and trauma; Z87.01 Personal history of pneumonia (recurrent)
CPT/HCPCS: 36415; 36600; 70551; 71045; 71275; 74176; 76700; 76770; 76937; 78227; 80048; 80053; 80061; 80076; 80202; 80307; 81003; 82040; 82270; 82375; 82550; 82607; 82728; 82746; 82805; 82962; 83036; 83540; 83550; 83605; 83735; 83880; 84100; 84134; 84145; 84484; 85014; 85018; 85025; 85027; 85044; 85379; 86038; 86160; 86850; 86900; 86920; 87070; 87426; 88305; 88312; 88313; 92610; 93005; 93306; 93880; 93970; 94640; 94660; 97162; 97166; 99291; A9537; C1725; C9113; J0692; J1650; J1815; J1940; J1953; J1956; J2248; J2250; J2370; J2543; J2765; J2920; J3010; J3370; J3480; J3490; J7040; J7042; J7050; J7060; J7070; J7512; J7608; P9016; P9047; Q9967; A4315

== ENCOUNTER 2022-02-25 22:44 | Inpatient (IN) | payer MEDICAID, OTHER ==
[~2022-02-25] VITALS: Ht 162.6 cm; Wt 76.7 kg
[~2022-02-25 22:44] MED LIST: CLOP75TA15 PO; DOCU-138 PO; FE300LUD PO; FLUO40CA49 PO; FOLI-43 PO; KEPPSOL GT; MIDO5TAB4 PO; THIA100T72 PO
[2022-02-25] MEDS ORDERED: ONDANSETRON HCL 4MG/2ML INJ IV STA (22:57)
[2022-02-25] MEDS ORDERED: ACETAMINOPHEN 650MG SUPP PR STA (22:57)
[2022-02-25] MEDS ORDERED: SODIUM CHLORIDE 0.9% 1,000 ML IV ONE (23:00)
[2022-02-25] MEDS ORDERED: VANCOMYCIN 1G PREMIX 200 ML IV ONE (23:00)
[2022-02-25] MEDS ORDERED: PIPERACILLIN/TAZ 3.375G PREMIX 50 ML IV ONE (23:00)
[2022-02-25 23:23] LABS: BG BASE EXCESS -4.2 mmol/L (-2.0-2.0); BG CARBOXYHEMOGLOBIN 0.6 % (0.5-1.5); BG DEOXYHEMOGLOBIN 5.6 % (0.0-5.0); BG FRACTION INSPIRED OXYGEN 100; BG HCO3 ACT 18.5 mmol/L (22.0-26.0); BG METHEMOGLOBIN 0.7 % (0.0-1.5); BG OXYGEN SATURATION 94.3 % (92.0-98.5); BG OXYHEMOGLOBIN 93.1 % (94.0-97.0); BG PCO2 28.5 mmHg (35.0-45.0); BG PO2 66.2 mmHg (75.0-100.0); BG SAMPLE SITE RIGHT RADIAL; BG TOTAL HEMOGLOBIN 15.6 g/dL (12.0-18.0); BG VENT MODE HIGH FLOW
[2022-02-25 23:24] LABS: HEMOGLOBIN. 16.1 g/dL (14.0-18.0); MEAN CORPUSCULAR HEMOGLOBIN 29.7 pg (28.0-32.0); MEAN CORPUSCULAR VOLUME 91.8 fL (80.0-94.0); MEAN PLATELET VOLUME 10.1 fl (7.4-10.4); PLATELET 183 x1000/uL (130-400); RED BLOOD CELL COUNT 5.44 mill/uL (4.7-6.1); RED CELL DISTRIBUTION WIDTH 14.5 % (11.6-14.6)
[2022-02-25 23:33] LABS: CHLORIDE 104 mEq/L (98-107)
[2022-02-26] VITALS (7 sets, daily range): BP systolic 102–116; BP diastolic 61–83
[2022-02-26 00:08] LABS: INR 1.1; PROTHROMBIN TIME 11.4 sec (9.6-11.0)
[2022-02-26 05:21] LABS: ATYPICAL LYMPHOCYTES 1
[2022-02-26 05:22] LABS: PLATELET ESTIMATE NORMAL
[2022-02-26 06:15] LABS: CLARITY URINE CLEAR (CLEAR); COLOR URINE YELLOW (YELLOW); KETONES URINE TRACE (NEGATIVE); LEUKOCYTE ESTERASE URINE NEGATIVE (NEGATIVE); NITRITE URINE POSITIVE (NEGATIVE); OCCULT BLOOD URINE 2+ (NEGATIVE); PH URINE 5.5 (4.5-8.0); PROTEIN URINE 3+ (NEGATIVE); SPECIFIC GRAVITY URINE 1.028 (1.005-1.030); UROBILINOGEN URINE 0.2 E.U./dL (0.2-1.0)
[2022-02-26] MEDS ORDERED: DIATR MEGLU/DIATRIZOATE SOLN 30ML PO SCH (07:45)
[2022-02-26] MEDS ORDERED: ACETAMINOPHEN 650MG/20.3ML UDC GT PRN (07:45)
[2022-02-26] MEDS ORDERED: CLONIDINE 0.1MG TABLET PO PRN (07:45)
[2022-02-26] MEDS ORDERED: MORPHINE SULFATE 2 MG/ML CPJ (NOT FOR IM USE) IV PRN (07:45)
[2022-02-26] MEDS ORDERED: ONDANSETRON HCL 4MG/2ML INJ IV PRN (07:45)
[2022-02-26] MEDS ORDERED: IPRATROPIUM BROMIDE (0.02%) 0.5MG/2.5ML NEB HHN PRN (08:15)
[2022-02-26] MEDS ORDERED: DEXTROSE 50% WATER 50ML SYRINGE IV PRN (08:15)
[2022-02-26 08:28] LABS: BG BASE EXCESS -2.5 mmol/L (-2.0-2.0); BG CARBOXYHEMOGLOBIN 0.3 % (0.5-1.5); BG DEOXYHEMOGLOBIN 10.2 % (0.0-5.0); BG HCO3 ACT 21.2 mmol/L (22.0-26.0); BG METHEMOGLOBIN 0.3 % (0.0-1.5); BG OXYGEN SATURATION 89.7 % (92.0-98.5); BG OXYHEMOGLOBIN 89.2 % (94.0-97.0); BG PCO2 34.2 mmHg (35.0-45.0); BG PH 7.411 (7.350-7.450); BG PO2 55.2 mmHg (75.0-100.0); BG SAMPLE SITE RIGHT BRACHIAL; BG TOTAL HEMOGLOBIN 15.4 g/dL (12.0-18.0); BG VENT MODE VAPOTHERM
[2022-02-26] MEDS ORDERED: PIPERACILLIN/TAZ 3.375G PREMIX 50 ML IV SCH ×2 (08:45→14:00)
[2022-02-26] MEDS ORDERED: SODIUM POLYSTYRENE SULFONATE 15 G/60 ML BOT PO SCH (09:00)
[2022-02-26] MEDS: SODIUM CHLORIDE 0.45% 1,000 ML IV SCH ×2 (09:00→22:09)
[2022-02-26] MEDS ORDERED: METHYLPREDNISOLONE SOD SUCC 125 MG/2 ML VIAL IV SCH (09:00)
[2022-02-26] MEDS: VANCOMYCIN 1G PREMIX 200 ML IV SCH ×2 (09:42→22:37)
[2022-02-26] MEDS: IPRATROPIUM BROMIDE (0.02%) 0.5MG/2.5ML NEB HHN SCH ×3 (09:50→20:38)
[2022-02-26] MEDS: INSULIN LISPRO 100 UNITS/ML SUBCUT SCH ×4 (10:32→22:10)
[2022-02-26] MEDS: BLOOD SUGAR DIAGNOSTIC STRIP TEST SCH ×4 (12:15→21:00)
[2022-02-26] MEDS: LEVETIRACETAM 500MG/5ML CUP GT SCH ×2 (12:16→21:51)
[2022-02-26] MEDS: FERROUS SULFATE 300MG/5ML UDC PO SCH ×2 (12:17→18:09)
[2022-02-26] MEDS: DOCUSATE SODIUM 100MG CAPSULE PO SCH (12:17)
[2022-02-26] MEDS: FOLIC ACID 1MG TABLET PO SCH (12:17)
[2022-02-26] MEDS: CLOPIDOGREL 75MG TABLET PO SCH (12:17)
[2022-02-26] MEDS: ENOXAPARIN 40MG/0.4ML SYR SUBCUT SCH (12:17)
[2022-02-26] MEDS: MIDODRINE HCL 5MG TABLET PO SCH ×2 (13:15→21:52)
[2022-02-26 14:14] LABS: BG BASE EXCESS -4.1 mmol/L (-2.0-2.0); BG CARBOXYHEMOGLOBIN 0.1 % (0.5-1.5); BG DEOXYHEMOGLOBIN 2.7 % (0.0-5.0); BG HCO3 ACT 20.8 mmol/L (22.0-26.0); BG METHEMOGLOBIN 0.2 % (0.0-1.5); BG OXYGEN SATURATION 97.3 % (92.0-98.5); BG PCO2 37.5 mmHg (35.0-45.0); BG PH 7.362 (7.350-7.450); BG PO2 93.7 mmHg (75.0-100.0); BG SAMPLE SITE RIGHT BRACHIAL; BG TOTAL HEMOGLOBIN 14.3 g/dL (12.0-18.0); BG VENT MODE MASK - BIPAP
[2022-02-26] MEDS: PIPERACILLIN/TAZOBACTAM 3.375 G in DEXTROSE 5% WATER 50 ML IV SCH ×2 (16:55→22:40)
[2022-02-27] VITALS (12 sets, daily range): BP systolic 109–125; BP diastolic 64–87
[2022-02-27] MEDS: IPRATROPIUM BROMIDE (0.02%) 0.5MG/2.5ML NEB HHN SCH ×4 (00:46→20:16)
[2022-02-27] MEDS: PIPERACILLIN/TAZOBACTAM 3.375 G in DEXTROSE 5% WATER 50 ML IV SCH ×3 (05:55→20:57)
[2022-02-27] MEDS: MIDODRINE HCL 5MG TABLET PO SCH ×3 (05:56→21:02)
[2022-02-27] MEDS: SODIUM CHLORIDE 0.45% 1,000 ML IV SCH (06:07)
[2022-02-27 06:09] LABS: CHLORIDE 105 mEq/L (98-107)
[2022-02-27 06:10] LABS: HEMATOCRIT. 36.2 % (42.0-52.0); HEMOGLOBIN. 12.2 g/dL (14.0-18.0); MEAN CORPUSCULAR HEMOGLOBIN 29.9 pg (28.0-32.0); MEAN CORPUSCULAR VOLUME 88.7 fL (80.0-94.0); MEAN PLATELET VOLUME 10.2 fl (7.4-10.4); PLATELET 154 x1000/uL (130-400); RED BLOOD CELL COUNT 4.08 mill/uL (4.7-6.1); RED CELL DISTRIBUTION WIDTH 14.5 % (11.6-14.6)
[2022-02-27] MEDS: BLOOD SUGAR DIAGNOSTIC STRIP TEST SCH ×4 (07:30→20:52)
[2022-02-27] MEDS: DOCUSATE SODIUM 100MG CAPSULE PO SCH (09:01)
[2022-02-27] MEDS: CLOPIDOGREL 75MG TABLET PO SCH (09:01)
[2022-02-27] MEDS: LEVETIRACETAM 500MG/5ML CUP GT SCH ×2 (09:01→20:45)
[2022-02-27] MEDS: ENOXAPARIN 40MG/0.4ML SYR SUBCUT SCH (09:01)
[2022-02-27] MEDS: FOLIC ACID 1MG TABLET PO SCH (09:01)
[2022-02-27] MEDS: FERROUS SULFATE 300MG/5ML UDC PO SCH ×2 (09:06→16:47)
[2022-02-27] MEDS: INSULIN LISPRO 100 UNITS/ML SUBCUT SCH ×4 (09:08→20:57)
[2022-02-27] MEDS: VANCOMYCIN 1G PREMIX 200 ML IV SCH ×2 (09:27→20:45)
[2022-02-27 10:30] LABS: PLATELET ESTIMATE NORMAL
[2022-02-27] MEDS: INSULIN GLARGINE 100 UNITS/ML SUBCUT SCH (10:45)
[2022-02-28] VITALS (15 sets, daily range): BP systolic 101–135; BP diastolic 50–79
[2022-02-28] MEDS: IPRATROPIUM BROMIDE (0.02%) 0.5MG/2.5ML NEB HHN SCH ×4 (01:16→21:39)
[2022-02-28] MEDS: PIPERACILLIN/TAZOBACTAM 3.375 G in DEXTROSE 5% WATER 50 ML IV SCH ×3 (05:44→21:37)
[2022-02-28] MEDS: MIDODRINE HCL 5MG TABLET PO SCH ×3 (05:44→21:37)
[2022-02-28 06:27] LABS: HEMATOCRIT. 35.1 % (42.0-52.0); HEMOGLOBIN. 11.8 g/dL (14.0-18.0); MEAN CORPUSCULAR HEMOGLOBIN 29.6 pg (28.0-32.0); MEAN CORPUSCULAR VOLUME 88.2 fL (80.0-94.0); MEAN PLATELET VOLUME 10.5 fl (7.4-10.4); PLATELET 172 x1000/uL (130-400); RED BLOOD CELL COUNT 3.98 mill/uL (4.7-6.1); RED CELL DISTRIBUTION WIDTH 14.1 % (11.6-14.6)
[2022-02-28] MEDS: BLOOD SUGAR DIAGNOSTIC STRIP TEST SCH ×4 (08:09→21:31)
[2022-02-28 08:18] LABS: CHLORIDE 104 mEq/L (98-107)
[2022-02-28] MEDS: VANCOMYCIN 1G PREMIX 200 ML IV SCH ×2 (08:22→21:37)
[2022-02-28] MEDS: DOCUSATE SODIUM 100MG CAPSULE PO SCH (08:22)
[2022-02-28] MEDS: CLOPIDOGREL 75MG TABLET PO SCH (08:22)
[2022-02-28] MEDS: ENOXAPARIN 40MG/0.4ML SYR SUBCUT SCH (08:22)
[2022-02-28] MEDS: FOLIC ACID 1MG TABLET PO SCH (08:22)
[2022-02-28] MEDS: LEVETIRACETAM 500MG/5ML CUP GT SCH ×2 (08:22→21:37)
[2022-02-28] MEDS: INSULIN LISPRO 100 UNITS/ML SUBCUT SCH ×4 (08:25→21:41)
[2022-02-28 08:35] LABS: PHOSPHORUS 1.1 mg/dL (2.5-4.9)
[2022-02-28] MEDS: FERROUS SULFATE 300MG/5ML UDC PO SCH ×2 (08:48→17:12)
[2022-02-28] MEDS: INSULIN GLARGINE 100 UNITS/ML SUBCUT SCH (10:09)
[2022-02-28] MEDS ORDERED: POTASSIUM PHOS,M-BASIC-D-BASIC 30 MMOL in DEXT 5% WATER 500 ML IV NR (11:00)
[2022-02-28 11:24] LABS: PLATELET ESTIMATE NORMAL
[2022-02-28 14:04] LABS: HEPATITIS B SURFACE ANTIGEN NEGATIVE
[2022-02-28] MEDS ORDERED: NALOXONE HCL 0.4MG/ML VIAL IV PRN (15:45)
[2022-03-01] VITALS (15 sets, daily range): BP systolic 96–127; BP diastolic 52–63
[2022-03-01] MEDS: IPRATROPIUM BROMIDE (0.02%) 0.5MG/2.5ML NEB HHN SCH ×3 (01:14→14:28)
[2022-03-01 05:40] LABS: HEMOGLOBIN. 10.8 g/dL (14.0-18.0); MEAN CORPUSCULAR VOLUME 88.2 fL (80.0-94.0); MEAN PLATELET VOLUME 10.2 fl (7.4-10.4); PLATELET 189 x1000/uL (130-400); RED BLOOD CELL COUNT 3.74 mill/uL (4.7-6.1); RED CELL DISTRIBUTION WIDTH 14.1 % (11.6-14.6)
[2022-03-01] MEDS: BLOOD SUGAR DIAGNOSTIC STRIP TEST SCH ×4 (06:27→23:11)
[2022-03-01] MEDS: PIPERACILLIN/TAZOBACTAM 3.375 G in DEXTROSE 5% WATER 50 ML IV SCH ×3 (06:33→23:01)
[2022-03-01] MEDS: MIDODRINE HCL 5MG TABLET PO SCH ×3 (06:33→23:01)
[2022-03-01] MEDS: INSULIN LISPRO 100 UNITS/ML SUBCUT SCH (06:34)
[2022-03-01] MEDS: FOLIC ACID 1MG TABLET PO SCH (09:32)
[2022-03-01] MEDS: ENOXAPARIN 40MG/0.4ML SYR SUBCUT SCH (09:32)
[2022-03-01] MEDS: CLOPIDOGREL 75MG TABLET PO SCH (09:32)
[2022-03-01] MEDS: LEVETIRACETAM 500MG/5ML CUP GT SCH ×2 (09:32→23:00)
[2022-03-01] MEDS: FERROUS SULFATE 300MG/5ML UDC PO SCH ×2 (09:32→17:41)
[2022-03-01] MEDS: VANCOMYCIN 1G PREMIX 200 ML IV SCH ×2 (09:32→23:01)
[2022-03-01] MEDS: DOCUSATE SODIUM 100MG CAPSULE PO SCH (09:32)
[2022-03-01] MEDS: INSULIN GLARGINE 100 UNITS/ML SUBCUT SCH (09:38)
[2022-03-01 10:11] LABS: CHLORIDE 101 mEq/L (98-107)
[2022-03-01 10:21] LABS: PHOSPHORUS 2.1 mg/dL (2.5-4.9)
[2022-03-01] MEDS ORDERED: INSULIN LISPRO 100 UNITS/ML SUBCUT SCH (12:00)
[2022-03-01] MEDS: INSULIN LISPRO (LOW DOSE) 100 UNITS/ML SUBCUT SCH ×3 (14:01→23:19)
[2022-03-01] MEDS ORDERED: IPRATROPIUM/ALBUTEROL 0.5-3(2.5)MG/3ML NEB HHN PRN (15:30)
[2022-03-01 20:39] LABS: PLATELET ESTIMATE NORMAL
[2022-03-01] MEDS: IPRATROPIUM/ALBUTEROL 0.5-3(2.5)MG/3ML NEB HHN SCH (20:42)
[2022-03-02] VITALS (20 sets, daily range): BP systolic 103–155; BP diastolic 50–74
[2022-03-02] MEDS: IPRATROPIUM/ALBUTEROL 0.5-3(2.5)MG/3ML NEB HHN SCH ×6 (00:28→20:29)
[2022-03-02] MEDS: ACETYLCYSTEINE 200MG/ML 20% VIAL 4ML INH SCH ×3 (00:28→16:37)
[2022-03-02] MEDS: BLOOD SUGAR DIAGNOSTIC STRIP TEST SCH ×3 (06:00→17:04)
[2022-03-02 06:39] LABS: HEMATOCRIT. 34.5 % (42.0-52.0); HEMOGLOBIN. 11.3 g/dL (14.0-18.0); MEAN CORPUSCULAR HEMOGLOBIN 28.9 pg (28.0-32.0); MEAN CORPUSCULAR VOLUME 88.5 fL (80.0-94.0); MEAN PLATELET VOLUME 9.8 fl (7.4-10.4); PLATELET 192 x1000/uL (130-400); RED CELL DISTRIBUTION WIDTH 14.3 % (11.6-14.6)
[2022-03-02] MEDS: PIPERACILLIN/TAZOBACTAM 3.375 G in DEXTROSE 5% WATER 50 ML IV SCH ×3 (07:17→21:36)
[2022-03-02] MEDS: MIDODRINE HCL 5MG TABLET PO SCH ×3 (07:18→21:37)
[2022-03-02] MEDS: INSULIN LISPRO (LOW DOSE) 100 UNITS/ML SUBCUT SCH ×3 (07:21→18:37)
[2022-03-02] MEDS: DOCUSATE SODIUM 100MG CAPSULE PO SCH (08:05)
[2022-03-02 08:43] LABS: CHLORIDE 101 mEq/L (98-107)
[2022-03-02] MEDS: ENOXAPARIN 40MG/0.4ML SYR SUBCUT SCH (08:43)
[2022-03-02] MEDS: CLOPIDOGREL 75MG TABLET PO SCH (08:43)
[2022-03-02] MEDS: LEVETIRACETAM 500MG/5ML CUP GT SCH ×2 (08:43→21:36)
[2022-03-02] MEDS: FOLIC ACID 1MG TABLET PO SCH (08:43)
[2022-03-02] MEDS: FERROUS SULFATE 300MG/5ML UDC PO SCH ×2 (08:43→17:04)
[2022-03-02] MEDS: VANCOMYCIN 1G PREMIX 200 ML IV SCH (08:43)
[2022-03-02 08:58] LABS: BG BASE EXCESS 7.9 mmol/L (-2.0-2.0); BG CARBOXYHEMOGLOBIN 0.1 % (0.5-1.5); BG DEOXYHEMOGLOBIN 5.2 % (0.0-5.0); BG FRACTION INSPIRED OXYGEN 70; BG HCO3 ACT 32.4 mmol/L (22.0-26.0); BG METHEMOGLOBIN 0.2 % (0.0-1.5); BG OXYGEN SATURATION 94.8 % (92.0-98.5); BG OXYHEMOGLOBIN 94.5 % (94.0-97.0); BG PCO2 44.9 mmHg (35.0-45.0); BG PH 7.476 (7.350-7.450); BG PO2 66.5 mmHg (75.0-100.0); BG SAMPLE SITE RIGHT BRACHIAL; BG TOTAL HEMOGLOBIN 12.5 g/dL (12.0-18.0); BG VENT MODE HIGH FLOW
[2022-03-02] MEDS: INSULIN GLARGINE 100 UNITS/ML SUBCUT SCH (09:06)
[2022-03-02] MEDS ORDERED: POTASSIUM CHLORIDE 20MEQ/PACKET PO NR (10:00)
[2022-03-02 15:21] LABS: PLATELET ESTIMATE NORMAL
[2022-03-03] VITALS (19 sets, daily range): BP systolic 107–175; BP diastolic 55–77
[2022-03-03] MEDS: ACETYLCYSTEINE 200MG/ML 20% VIAL 4ML INH SCH ×3 (00:37→16:55)
[2022-03-03] MEDS: IPRATROPIUM/ALBUTEROL 0.5-3(2.5)MG/3ML NEB HHN SCH ×6 (00:37→21:29)
[2022-03-03] MEDS: BLOOD SUGAR DIAGNOSTIC STRIP TEST SCH ×5 (00:39→23:59)
[2022-03-03] MEDS: INSULIN LISPRO (LOW DOSE) 100 UNITS/ML SUBCUT SCH ×4 (00:40→18:19)
[2022-03-03] MEDS: PIPERACILLIN/TAZOBACTAM 3.375 G in DEXTROSE 5% WATER 50 ML IV SCH ×2 (07:36→21:57)
[2022-03-03] MEDS: MIDODRINE HCL 5MG TABLET PO SCH ×3 (07:37→21:57)
[2022-03-03 08:45] LABS: HEMATOCRIT. 35.2 % (42.0-52.0); HEMOGLOBIN. 11.7 g/dL (14.0-18.0); MEAN CORPUSCULAR HEMOGLOBIN 29.4 pg (28.0-32.0); MEAN CORPUSCULAR VOLUME 88.2 fL (80.0-94.0); MEAN PLATELET VOLUME 10.9 fl (7.4-10.4); PLATELET 255 x1000/uL (130-400); RED BLOOD CELL COUNT 3.99 mill/uL (4.7-6.1); RED CELL DISTRIBUTION WIDTH 14.2 % (11.6-14.6)
[2022-03-03] MEDS: FERROUS SULFATE 300MG/5ML UDC PO SCH ×2 (08:46→17:27)
[2022-03-03 08:59] LABS: CHLORIDE 102 mEq/L (98-107)
[2022-03-03] MEDS: DOCUSATE SODIUM 100MG CAPSULE PO SCH (08:59)
[2022-03-03] MEDS: CLOPIDOGREL 75MG TABLET PO SCH (08:59)
[2022-03-03] MEDS: LEVETIRACETAM 500MG/5ML CUP GT SCH ×2 (09:00→21:57)
[2022-03-03] MEDS: FOLIC ACID 1MG TABLET PO SCH (09:00)
[2022-03-03] MEDS: ENOXAPARIN 40MG/0.4ML SYR SUBCUT SCH (09:00)
[2022-03-03] MEDS: INSULIN GLARGINE 100 UNITS/ML SUBCUT SCH (09:02)
[2022-03-03 09:10] LABS: PHOSPHORUS 1.8 mg/dL (2.5-4.9)
[2022-03-03 16:55] LABS: HEMATOCRIT. 33.4 % (42.0-52.0); HEMOGLOBIN. 11.3 g/dL (14.0-18.0); MEAN CORPUSCULAR HEMOGLOBIN 29.7 pg (28.0-32.0); MEAN PLATELET VOLUME 10.5 fl (7.4-10.4); PLATELET 240 x1000/uL (130-400); RED BLOOD CELL COUNT 3.79 mill/uL (4.7-6.1); RED CELL DISTRIBUTION WIDTH 14.5 % (11.6-14.6)
[2022-03-03 18:13] LABS: PLATELET ESTIMATE NORMAL
[2022-03-03 18:34] LABS: PLATELET ESTIMATE NORMAL
[2022-03-04] VITALS (18 sets, daily range): BP systolic 98–134; BP diastolic 54–76
[2022-03-04] MEDS: INSULIN LISPRO (LOW DOSE) 100 UNITS/ML SUBCUT SCH ×4 (00:18→16:46)
[2022-03-04] MEDS: ACETYLCYSTEINE 200MG/ML 20% VIAL 4ML INH SCH ×3 (00:44→16:38)
[2022-03-04] MEDS: IPRATROPIUM/ALBUTEROL 0.5-3(2.5)MG/3ML NEB HHN SCH ×6 (00:44→20:49)
[2022-03-04] MEDS: PIPERACILLIN/TAZOBACTAM 3.375 G in DEXTROSE 5% WATER 50 ML IV SCH ×3 (06:50→21:32)
[2022-03-04] MEDS: MIDODRINE HCL 5MG TABLET PO SCH ×3 (06:50→21:33)
[2022-03-04] MEDS: BLOOD SUGAR DIAGNOSTIC STRIP TEST SCH ×3 (06:53→16:46)
[2022-03-04] MEDS: FOLIC ACID 1MG TABLET PO SCH (08:47)
[2022-03-04] MEDS: CLOPIDOGREL 75MG TABLET PO SCH (08:47)
[2022-03-04] MEDS: LEVETIRACETAM 500MG/5ML CUP GT SCH ×2 (08:47→21:32)
[2022-03-04] MEDS: DOCUSATE SODIUM 100MG CAPSULE PO SCH (08:47)
[2022-03-04] MEDS: FERROUS SULFATE 300MG/5ML UDC PO SCH ×2 (08:47→16:50)
[2022-03-04] MEDS: ENOXAPARIN 40MG/0.4ML SYR SUBCUT SCH (08:48)
[2022-03-04] MEDS: INSULIN GLARGINE 100 UNITS/ML SUBCUT SCH (09:15)
[2022-03-04 12:01] LABS: HEMATOCRIT. 30.7 % (42.0-52.0); MEAN CORPUSCULAR HEMOGLOBIN 29.2 pg (28.0-32.0); MEAN CORPUSCULAR VOLUME 89.4 fL (80.0-94.0); MEAN PLATELET VOLUME 10.2 fl (7.4-10.4); PLATELET 283 x1000/uL (130-400); RED BLOOD CELL COUNT 3.43 mill/uL (4.7-6.1); RED CELL DISTRIBUTION WIDTH 14.6 % (11.6-14.6)
[2022-03-04 16:07] LABS: CHLORIDE 100 mEq/L (98-107)
[2022-03-04 16:34] LABS: CREATINE KINASE 125 IU/L (39-308)
[2022-03-05] VITALS (16 sets, daily range): BP systolic 93–147; BP diastolic 51–76
[2022-03-05] MEDS: IPRATROPIUM/ALBUTEROL 0.5-3(2.5)MG/3ML NEB HHN SCH ×6 (00:38→20:43)
[2022-03-05 06:12] LABS: NUCLEATED RED BLOOD CELLS 1 /100 WBC; PLATELET ESTIMATE NORMAL
[2022-03-05] MEDS: BLOOD SUGAR DIAGNOSTIC STRIP TEST SCH ×5 (06:48→23:52)
[2022-03-05] MEDS: PIPERACILLIN/TAZOBACTAM 3.375 G in DEXTROSE 5% WATER 50 ML IV SCH ×3 (06:49→21:57)
[2022-03-05] MEDS: MIDODRINE HCL 5MG TABLET PO SCH ×2 (06:49→14:00)
[2022-03-05] MEDS: INSULIN LISPRO (LOW DOSE) 100 UNITS/ML SUBCUT SCH ×5 (06:52→23:52)
[2022-03-05 09:12] LABS: BG BASE EXCESS 5.4 mmol/L (-2.0-2.0); BG CARBOXYHEMOGLOBIN 0.3 % (0.5-1.5); BG DEOXYHEMOGLOBIN 2.5 % (0.0-5.0); BG FRACTION INSPIRED OXYGEN 60; BG HCO3 ACT 29.1 mmol/L (22.0-26.0); BG METHEMOGLOBIN 0.3 % (0.0-1.5); BG OXYGEN SATURATION 97.5 % (92.0-98.5); BG OXYHEMOGLOBIN 96.9 % (94.0-97.0); BG PO2 90.8 mmHg (75.0-100.0); BG SAMPLE SITE RIGHT BRACHIAL; BG TOTAL HEMOGLOBIN 11.7 g/dL (12.0-18.0); BG VENT MODE HIGH FLOW
[2022-03-05] MEDS: INSULIN GLARGINE 100 UNITS/ML SUBCUT SCH (09:16)
[2022-03-05] MEDS: CLOPIDOGREL 75MG TABLET PO SCH (09:46)
[2022-03-05] MEDS: DOCUSATE SODIUM 100MG CAPSULE PO SCH (09:46)
[2022-03-05] MEDS: FOLIC ACID 1MG TABLET PO SCH (09:46)
[2022-03-05] MEDS: FERROUS SULFATE 300MG/5ML UDC PO SCH ×2 (09:46→17:00)
[2022-03-05] MEDS: ENOXAPARIN 40MG/0.4ML SYR SUBCUT SCH (09:46)
[2022-03-05] MEDS: LEVETIRACETAM 500MG/5ML CUP GT SCH ×2 (09:46→21:57)
[2022-03-05] MEDS: MIDODRINE HCL 2.5MG TABLET PO SCH (22:06)
[2022-03-06] VITALS (12 sets, daily range): BP systolic 106–134; BP diastolic 53–98
[2022-03-06] MEDS: IPRATROPIUM/ALBUTEROL 0.5-3(2.5)MG/3ML NEB HHN SCH ×7 (00:34→23:58)
[2022-03-06] MEDS: MIDODRINE HCL 2.5MG TABLET PO SCH ×3 (05:55→22:00)
[2022-03-06] MEDS: PIPERACILLIN/TAZOBACTAM 3.375 G in DEXTROSE 5% WATER 50 ML IV SCH ×3 (05:55→22:41)
[2022-03-06] MEDS: INSULIN LISPRO (LOW DOSE) 100 UNITS/ML SUBCUT SCH ×3 (05:56→17:54)
[2022-03-06] MEDS: BLOOD SUGAR DIAGNOSTIC STRIP TEST SCH ×3 (06:00→17:05)
[2022-03-06 07:33] LABS: HEMATOCRIT. 31.9 % (42.0-52.0); HEMOGLOBIN. 10.6 g/dL (14.0-18.0); MEAN CORPUSCULAR HEMOGLOBIN 29.4 pg (28.0-32.0); MEAN CORPUSCULAR VOLUME 88.3 fL (80.0-94.0); MEAN PLATELET VOLUME 10.4 fl (7.4-10.4); PLATELET 321 x1000/uL (130-400); RED BLOOD CELL COUNT 3.61 mill/uL (4.7-6.1); RED CELL DISTRIBUTION WIDTH 14.4 % (11.6-14.6)
[2022-03-06 07:41] LABS: CHLORIDE 99 mEq/L (98-107)
[2022-03-06] MEDS: INSULIN GLARGINE 100 UNITS/ML SUBCUT SCH (09:56)
[2022-03-06] MEDS: DOCUSATE SODIUM 100MG CAPSULE PO SCH (10:09)
[2022-03-06] MEDS: LEVETIRACETAM 500MG/5ML CUP GT SCH ×2 (10:09→21:35)
[2022-03-06] MEDS: FERROUS SULFATE 300MG/5ML UDC PO SCH ×2 (10:09→17:54)
[2022-03-06] MEDS: ENOXAPARIN 40MG/0.4ML SYR SUBCUT SCH (10:10)
[2022-03-06] MEDS: FOLIC ACID 1MG TABLET PO SCH (10:10)
[2022-03-06] MEDS: CLOPIDOGREL 75MG TABLET PO SCH (10:10)
[2022-03-06] MEDS ORDERED: ACETYLCYSTEINE 100MG/ML 10% VIAL 4ML INH SCH (14:57)
[2022-03-07] VITALS (10 sets, daily range): BP systolic 105–132; BP diastolic 48–79
[2022-03-07] MEDS: INSULIN LISPRO (LOW DOSE) 100 UNITS/ML SUBCUT SCH ×5 (00:43→23:12)
[2022-03-07] MEDS: IPRATROPIUM/ALBUTEROL 0.5-3(2.5)MG/3ML NEB HHN SCH ×5 (04:03→21:22)
[2022-03-07] MEDS: MIDODRINE HCL 2.5MG TABLET PO SCH ×3 (05:38→21:29)
[2022-03-07] MEDS: PIPERACILLIN/TAZOBACTAM 3.375 G in DEXTROSE 5% WATER 50 ML IV SCH ×3 (05:38→21:28)
[2022-03-07] MEDS: BLOOD SUGAR DIAGNOSTIC STRIP TEST SCH ×5 (05:39→23:08)
[2022-03-07 06:50] LABS: HEMATOCRIT. 34.1 % (42.0-52.0); HEMOGLOBIN. 11.2 g/dL (14.0-18.0); MEAN CORPUSCULAR HEMOGLOBIN 29.1 pg (28.0-32.0); MEAN CORPUSCULAR VOLUME 88.3 fL (80.0-94.0); MEAN PLATELET VOLUME 9.8 fl (7.4-10.4); PLATELET 355 x1000/uL (130-400); RED BLOOD CELL COUNT 3.86 mill/uL (4.7-6.1); RED CELL DISTRIBUTION WIDTH 14.4 % (11.6-14.6)
[2022-03-07] MEDS: FOLIC ACID 1MG TABLET PO SCH (09:00)
[2022-03-07 09:10] LABS: CHLORIDE 99 mEq/L (98-107)
[2022-03-07] MEDS: DOCUSATE SODIUM 100MG CAPSULE PO SCH (09:48)
[2022-03-07] MEDS: FERROUS SULFATE 300MG/5ML UDC PO SCH ×2 (09:48→18:07)
[2022-03-07] MEDS: ENOXAPARIN 40MG/0.4ML SYR SUBCUT SCH (09:48)
[2022-03-07] MEDS: LEVETIRACETAM 500MG/5ML CUP GT SCH ×2 (09:48→20:28)
[2022-03-07] MEDS: CLOPIDOGREL 75MG TABLET PO SCH (09:48)
[2022-03-07] MEDS: INSULIN GLARGINE 100 UNITS/ML SUBCUT SCH (10:01)
[2022-03-07 11:36] LABS: PLATELET ESTIMATE NORMAL
[2022-03-08] VITALS (10 sets, daily range): BP systolic 100–122; BP diastolic 50–72
[2022-03-08] MEDS: IPRATROPIUM/ALBUTEROL 0.5-3(2.5)MG/3ML NEB HHN SCH ×6 (01:13→20:31)
[2022-03-08] MEDS: BLOOD SUGAR DIAGNOSTIC STRIP TEST SCH ×3 (05:02→17:53)
[2022-03-08] MEDS: PIPERACILLIN/TAZOBACTAM 3.375 G in DEXTROSE 5% WATER 50 ML IV SCH ×3 (05:02→21:02)
[2022-03-08] MEDS: MIDODRINE HCL 2.5MG TABLET PO SCH ×3 (05:05→21:03)
[2022-03-08] MEDS: INSULIN LISPRO (LOW DOSE) 100 UNITS/ML SUBCUT SCH ×3 (05:11→17:11)
[2022-03-08 06:58] LABS: PLATELET ESTIMATE NORMAL
[2022-03-08 07:12] LABS: HEMATOCRIT. 32.7 % (42.0-52.0); HEMOGLOBIN. 10.9 g/dL (14.0-18.0); MEAN CORPUSCULAR HEMOGLOBIN 29.5 pg (28.0-32.0); MEAN CORPUSCULAR VOLUME 88.4 fL (80.0-94.0); MEAN PLATELET VOLUME 10.3 fl (7.4-10.4); PLATELET 373 x1000/uL (130-400); RED CELL DISTRIBUTION WIDTH 14.6 % (11.6-14.6)
[2022-03-08 07:37] LABS: CHLORIDE 99 mEq/L (98-107)
[2022-03-08] MEDS: FERROUS SULFATE 300MG/5ML UDC PO SCH ×2 (08:39→16:42)
[2022-03-08] MEDS: DOCUSATE SODIUM 100MG CAPSULE PO SCH (08:39)
[2022-03-08] MEDS: CLOPIDOGREL 75MG TABLET PO SCH (08:39)
[2022-03-08] MEDS: ENOXAPARIN 40MG/0.4ML SYR SUBCUT SCH (08:40)
[2022-03-08] MEDS: LEVETIRACETAM 500MG/5ML CUP GT SCH ×2 (08:44→21:02)
[2022-03-08] MEDS: FOLIC ACID 1MG TABLET PO SCH (08:44)
[2022-03-08] MEDS: INSULIN GLARGINE 100 UNITS/ML SUBCUT SCH (10:43)
[2022-03-08 13:53] LABS: PLATELET ESTIMATE NORMAL
[2022-03-09] VITALS (7 sets, daily range): BP systolic 93–111; BP diastolic 47–71
[2022-03-09] MEDS: BLOOD SUGAR DIAGNOSTIC STRIP TEST SCH ×4 (00:55→17:33)
[2022-03-09] MEDS: IPRATROPIUM/ALBUTEROL 0.5-3(2.5)MG/3ML NEB HHN SCH ×6 (01:36→21:23)
[2022-03-09] MEDS: INSULIN LISPRO (LOW DOSE) 100 UNITS/ML SUBCUT SCH ×4 (01:50→17:41)
[2022-03-09] MEDS: MIDODRINE HCL 2.5MG TABLET PO SCH ×2 (05:19→13:36)
[2022-03-09] MEDS: ENOXAPARIN 40MG/0.4ML SYR SUBCUT SCH (09:01)
[2022-03-09] MEDS: FERROUS SULFATE 300MG/5ML UDC PO SCH ×2 (09:01→17:39)
[2022-03-09] MEDS: CLOPIDOGREL 75MG TABLET PO SCH (09:01)
[2022-03-09] MEDS: LEVETIRACETAM 500MG/5ML CUP GT SCH ×2 (09:01→22:53)
[2022-03-09] MEDS: FOLIC ACID 1MG TABLET PO SCH (09:02)
[2022-03-09] MEDS: DOCUSATE SODIUM 100MG CAPSULE PO SCH (09:02)
[2022-03-09] MEDS: INSULIN GLARGINE 100 UNITS/ML SUBCUT SCH (10:42)
[2022-03-09] MEDS: MIDODRINE HCL 5MG TABLET PO SCH (22:53)
[2022-03-10] MEDS: BLOOD SUGAR DIAGNOSTIC STRIP TEST SCH ×4 (00:07→16:46)
[2022-03-10] MEDS: INSULIN LISPRO (LOW DOSE) 100 UNITS/ML SUBCUT SCH ×4 (00:16→17:54)
[2022-03-10] MEDS: IPRATROPIUM/ALBUTEROL 0.5-3(2.5)MG/3ML NEB HHN SCH ×6 (00:48→21:09)
[2022-03-10 04:00] VITALS: BP 104/55
[2022-03-10] MEDS: MIDODRINE HCL 5MG TABLET PO SCH ×3 (05:42→21:15)
[2022-03-10 06:43] LABS: BASOPHILS % 0.8 % (0.0-2.0); HEMATOCRIT. 33.4 % (42.0-52.0); HEMOGLOBIN. 11.1 g/dL (14.0-18.0); LYMPHOCYTES % 10.7 % (20.0-50.0); MEAN CORPUSCULAR HEMOGLOBIN 29.2 pg (28.0-32.0); MEAN CORPUSCULAR VOLUME 87.8 fL (80.0-94.0); MEAN PLATELET VOLUME 9.9 fl (7.4-10.4); MONOCYTES % 7.9 % (2.0-8.0); NEUTROPHILS % 79.6 % (40.0-76.0); PLATELET 437 x1000/uL (130-400); RED CELL DISTRIBUTION WIDTH 14.8 % (11.6-14.6)
[2022-03-10 08:00] VITALS: BP 104/64
[2022-03-10] MEDS: FERROUS SULFATE 300MG/5ML UDC PO SCH ×2 (10:49→16:51)
[2022-03-10] MEDS: INSULIN GLARGINE 100 UNITS/ML SUBCUT SCH (10:49)
[2022-03-10] MEDS: LEVETIRACETAM 500MG/5ML CUP GT SCH ×2 (10:49→21:09)
[2022-03-10] MEDS: CLOPIDOGREL 75MG TABLET PO SCH (10:50)
[2022-03-10] MEDS: DOCUSATE SODIUM 100MG CAPSULE PO SCH (10:50)
[2022-03-10] MEDS: FOLIC ACID 1MG TABLET PO SCH (10:50)
[2022-03-10] MEDS: ENOXAPARIN 40MG/0.4ML SYR SUBCUT SCH (10:50)
[2022-03-10 12:00] VITALS: BP 96/58
[2022-03-10 16:00] VITALS: BP 99/53
[2022-03-10 20:00] VITALS: BP 100/54
[2022-03-10 22:53] LABS: CHLORIDE 103 mEq/L (98-107)
[2022-03-11] VITALS: BP 99/55
[2022-03-11] MEDS: BLOOD SUGAR DIAGNOSTIC STRIP TEST SCH ×4 (00:14→17:44)
[2022-03-11] MEDS: IPRATROPIUM/ALBUTEROL 0.5-3(2.5)MG/3ML NEB HHN SCH ×7 (00:43→23:58)
[2022-03-11 04:00] VITALS: BP 95/55
[2022-03-11] MEDS: MIDODRINE HCL 5MG TABLET PO SCH ×3 (05:13→21:08)
[2022-03-11] MEDS: INSULIN LISPRO (LOW DOSE) 100 UNITS/ML SUBCUT SCH ×4 (06:06→17:57)
[2022-03-11 08:00] VITALS: BP 102/50
[2022-03-11] MEDS: CLOPIDOGREL 75MG TABLET PO SCH (08:37)
[2022-03-11] MEDS: LEVETIRACETAM 500MG/5ML CUP GT SCH ×2 (08:37→21:08)
[2022-03-11] MEDS: ENOXAPARIN 40MG/0.4ML SYR SUBCUT SCH (08:37)
[2022-03-11] MEDS: FOLIC ACID 1MG TABLET PO SCH (08:37)
[2022-03-11] MEDS: FERROUS SULFATE 300MG/5ML UDC PO SCH ×2 (08:37→17:56)
[2022-03-11] MEDS: DOCUSATE SODIUM 100MG CAPSULE PO SCH (08:37)
[2022-03-11] MEDS: INSULIN GLARGINE 100 UNITS/ML SUBCUT SCH (11:43)
[2022-03-11 12:00] VITALS: BP 99/57
[2022-03-11 19:23] VITALS: BP 98/68
[2022-03-11 20:00] VITALS: BP 102/64
[2022-03-12 00:05] VITALS: BP 110/66
[2022-03-12] MEDS: IPRATROPIUM/ALBUTEROL 0.5-3(2.5)MG/3ML NEB HHN SCH ×4 (03:06→15:27)
[2022-03-12 04:00] VITALS: BP 106/63
[2022-03-12] MEDS: MIDODRINE HCL 5MG TABLET PO SCH ×2 (05:31→13:26)
[2022-03-12] MEDS: BLOOD SUGAR DIAGNOSTIC STRIP TEST SCH ×3 (05:38→12:49)
[2022-03-12] MEDS: INSULIN LISPRO (LOW DOSE) 100 UNITS/ML SUBCUT SCH ×3 (05:42→13:26)
[2022-03-12 08:10] VITALS: BP 105/59
[2022-03-12] MEDS: FERROUS SULFATE 300MG/5ML UDC PO SCH ×2 (08:36→17:00)
[2022-03-12] MEDS: FOLIC ACID 1MG TABLET PO SCH (08:36)
[2022-03-12] MEDS: LEVETIRACETAM 500MG/5ML CUP GT SCH (08:36)
[2022-03-12] MEDS: CLOPIDOGREL 75MG TABLET PO SCH (08:36)
[2022-03-12] MEDS: DOCUSATE SODIUM 100MG CAPSULE PO SCH (08:37)
[2022-03-12] MEDS: ENOXAPARIN 40MG/0.4ML SYR SUBCUT SCH (08:37)
[2022-03-12] MEDS: INSULIN GLARGINE 100 UNITS/ML SUBCUT SCH (10:59)
[2022-03-12 12:00] VITALS: BP 97/55
[2022-03-12 15:44] VITALS: BP 106/67
[2022-03-12 16:00] VITALS: BP 106/67
[2022-03-12 16:13] LABS: HEMATOCRIT. 32.4 % (42.0-52.0); HEMOGLOBIN. 10.7 g/dL (14.0-18.0); MEAN CORPUSCULAR HEMOGLOBIN 29.4 pg (28.0-32.0); MEAN CORPUSCULAR VOLUME 88.6 fL (80.0-94.0); MEAN PLATELET VOLUME 9.4 fl (7.4-10.4); PLATELET 454 x1000/uL (130-400); RED BLOOD CELL COUNT 3.66 mill/uL (4.7-6.1); RED CELL DISTRIBUTION WIDTH 14.8 % (11.6-14.6)
[2022-03-12 16:43] LABS: CHLORIDE 102 mEq/L (98-107)
[2022-03-12 19:07] LABS: PLATELET ESTIMATE MARKEDLY INCREASED
== END 2022-03-12 17:20 | DRG 720 ==
LOC: ER 22:44 → 5EST 02-26 03:28 → EDBEDREQ 02-26 03:34 → EDBEDREQTM 02-26 07:53 → EDBEDREQSVC 02-26 08:21 → 7WST 03-08 23:55
PROVIDERS: ADMIT Internal Medicine Nephrology; ATTEND Internal Medicine Nephrology
PROC: 5A0935A Assistance with Respiratory Ventilation, Less than 24 Consecutive Hours, High Flow/Velocity Cannula (ICD-10-PCS; 2022-02-25)
PROC: 5A09357 Assistance with Respiratory Ventilation, Less than 24 Consecutive Hours, Continuous Positive Airway Pressure (ICD-10-PCS; 2022-02-26)
PROC: 5A0955A Assistance with Respiratory Ventilation, Greater than 96 Consecutive Hours, High Flow/Velocity Cannula (ICD-10-PCS; principal; 2022-02-28)
DX: A41.9 Sepsis, unspecified organism (principal); J96.01 Acute respiratory failure with hypoxia; E43 Unspecified severe protein-calorie malnutrition; E87.20 Acidosis, unspecified; J18.9 Pneumonia, unspecified organism; K56.1 Intussusception; D63.8 Anemia in other chronic diseases classified elsewhere; Z20.822 Contact with and (suspected) exposure to COVID-19; E11.65 Type 2 diabetes mellitus with hyperglycemia; E87.5 Hyperkalemia; I10 Essential (primary) hypertension; K82.9 Disease of gallbladder, unspecified; K52.9 Noninfective gastroenteritis and colitis, unspecified; N39.0 Urinary tract infection, site not specified; E78.00 Pure hypercholesterolemia, unspecified; G40.909 Epilepsy, unspecified, not intractable, without status epilepticus; E78.5 Hyperlipidemia, unspecified; K59.09 Other constipation; D72.825 Bandemia; R62.50 Unspecified lack of expected normal physiological development in childhood; R13.10 Dysphagia, unspecified; F20.9 Schizophrenia, unspecified; Z79.899 Other long term (current) drug therapy; Z68.29 Body mass index [BMI] 29.0-29.9, adult; Z93.1 Gastrostomy status
CPT/HCPCS: 36415; 36600; 71045; 74176; 80048; 80053; 80202; 81003; 82270; 82375; 82550; 82805; 82962; 83036; 83605; 83735; 83880; 84100; 84145; 84443; 84484; 85025; 86803; 87340; 87426; 87804; 93005; 93306; 93970; 94640; 94660; 94667; 97162; 99291; C9803; J1650; J1815; J2405; J2543; J2930; J3370; J3490; J7030; J7060; J7608; Q9963

== ENCOUNTER 2022-06-28 23:09 | Inpatient (IN) | payer MEDICAID, OTHER ==
[~2022-06-28] VITALS: Ht 177.8 cm; Wt 72.6 kg
[~2022-06-28 23:09] MED LIST changes: +ETOMIDATE 2MG/ML 10ML VIAL IV ONE; +SUCCINYLCHOLINE CHLORIDE 200MG/10ML IV ONE
[2022-06-28] MEDS ORDERED: VANCOMYCIN 1GM PMX (XELLIA) 200 ML IV STA (23:28)
[2022-06-28] MEDS ORDERED: CEFEPIME 1,000 MG in DEXTROSE 5% WATER 50 ML IV STA (23:28)
[2022-06-28] MEDS ORDERED: SODIUM CHLORIDE 0.9% 1,000 ML IV ONE ×2 (23:30)
[2022-06-28] MEDS ORDERED: ACETAMINOPHEN 650MG SUPP PR ONE (23:30)
[2022-06-28] MEDS ORDERED: MIDAZOLAM 100MG/100ML PMX 100 ML IV PRN (23:45)
[2022-06-28] MEDS ORDERED: SODIUM CHLORIDE 0.9% 1000ML BAG (SEPSIS BOLUS) IV ONE (23:45)
[2022-06-28] MEDS ORDERED: MIDAZOLAM HCL 100 MG in SODIUM CHLORIDE 0.9% 100 ML IV PRN (23:45)
[2022-06-28] MEDS ORDERED: VANCOMYCIN 1G PREMIX 200 ML IV NR (23:45)
[2022-06-28 23:54] LABS: BASOPHILS % 0.7 % (0.0-2.0); HEMATOCRIT. 51.6 % (42.0-52.0); HEMOGLOBIN. 16.2 g/dL (14.0-18.0); LYMPHOCYTES % 9.6 % (20.0-50.0); MEAN CORPUSCULAR HEMOGLOBIN 29.2 pg (28.0-32.0); MEAN CORPUSCULAR VOLUME 93.1 fL (80.0-94.0); MONOCYTES % 6.1 % (2.0-8.0); NEUTROPHILS % 83.6 % (40.0-76.0); PLATELET 302 x1000/uL (130-400); RED BLOOD CELL COUNT 5.54 mill/uL (4.7-6.1); RED CELL DISTRIBUTION WIDTH 15.4 % (11.6-14.6)
[2022-06-29] VITALS (13 sets, daily range): BP systolic 31–112; BP diastolic 22–76
[2022-06-29 00:09] LABS: CHLORIDE 105 mEq/L (98-107)
[2022-06-29] MEDS ORDERED: CEFEPIME 1,000 MG in DEXTROSE 5% WATER 50 ML IV NR (00:15)
[2022-06-29] MEDS ORDERED: ACETAMINOPHEN 325MG SUPP PR ONE (00:15)
[2022-06-29] MEDS ORDERED: ACETAMINOPHEN 650MG SUPP PR ONE (00:15)
[2022-06-29 00:19] LABS: BG BASE EXCESS -12.4 mmol/L (-2.0-2.0); BG CARBOXYHEMOGLOBIN 0.4 % (0.5-1.5); BG DEOXYHEMOGLOBIN 6.2 % (0.0-5.0); BG FRACTION INSPIRED OXYGEN 100; BG HCO3 ACT 13.9 mmol/L (22.0-26.0); BG METHEMOGLOBIN 0.6 % (0.0-1.5); BG OXYGEN SATURATION 93.7 % (92.0-98.5); BG OXYHEMOGLOBIN 92.8 % (94.0-97.0); BG PCO2 33.9 mmHg (35.0-45.0); BG PH 7.231 (7.350-7.450); BG PO2 79.1 mmHg (75.0-100.0); BG SAMPLE SITE RIGHT BRACHIAL; BG TOTAL HEMOGLOBIN 17.2 g/dL (12.0-18.0); BG TOTAL RESPIRATORY RATE 47 b/min; BG VENT MODE VENT - AC
[2022-06-29] MEDS ORDERED: INSULIN REGULAR 100U/100ML PMX 100 ML IV NR ×2 (00:30→00:45)
[2022-06-29] MEDS ORDERED: SODIUM BICARBONATE 8.4% 1 MEQ/ML 50ML SYR IV NR ×2 (00:30→10:45)
[2022-06-29] MEDS ORDERED: ACETAMINOPHEN 650MG SUPP PR NR (00:45)
[2022-06-29] MEDS ORDERED: SODIUM CHL 0.9% + KCL 20MEQ/L 1,000 ML IV NR ×2 (00:45)
[2022-06-29 01:18] LABS: CLARITY URINE CLOUDY (CLEAR); COLOR URINE YELLOW (YELLOW); KETONES URINE TRACE (NEGATIVE); LEUKOCYTE ESTERASE URINE NEGATIVE (NEGATIVE); NITRITE URINE NEGATIVE (NEGATIVE); OCCULT BLOOD URINE NEGATIVE (NEGATIVE); PROTEIN URINE 3+ (NEGATIVE); SPECIFIC GRAVITY URINE 1.029 (1.005-1.030); UROBILINOGEN URINE 0.2 E.U./dL (0.2-1.0)
[2022-06-29] MEDS ORDERED: NOREPINEPHRINE 8 MG in DEXTROSE 5% WATER 250 ML IV NR (02:15)
[2022-06-29] MEDS ORDERED: NOREPINEPHRINE 8MG/250ML PMX 250 ML IV ONE (02:15)
[2022-06-29] MEDS ORDERED: ACETAMINOPHEN 650MG SUPP PR PRN (05:30)
[2022-06-29 06:16] LABS: BG BASE EXCESS -11.9 mmol/L (-2.0-2.0); BG CARBOXYHEMOGLOBIN 0.5 % (0.5-1.5); BG DEOXYHEMOGLOBIN 8.9 % (0.0-5.0); BG FRACTION INSPIRED OXYGEN 100; BG HCO3 ACT 16.3 mmol/L (22.0-26.0); BG METHEMOGLOBIN 0.6 % (0.0-1.5); BG PCO2 45.2 mmHg (35.0-45.0); BG PH 7.176 (7.350-7.450); BG PO2 68.4 mmHg (75.0-100.0); BG SAMPLE SITE RIGHT BRACHIAL; BG TOTAL HEMOGLOBIN 16.8 g/dL (12.0-18.0); BG TOTAL RESPIRATORY RATE 42 b/min; BG VENT MODE VENT - AC
[2022-06-29 06:56] LABS: HEMATOCRIT. 47.8 % (42.0-52.0); HEMOGLOBIN. 15.4 g/dL (14.0-18.0); MEAN CORPUSCULAR HEMOGLOBIN 29.8 pg (28.0-32.0); MEAN CORPUSCULAR VOLUME 92.4 fL (80.0-94.0); MEAN PLATELET VOLUME 10.2 fl (7.4-10.4); PLATELET 263 x1000/uL (130-400); RED BLOOD CELL COUNT 5.18 mill/uL (4.7-6.1); RED CELL DISTRIBUTION WIDTH 15.6 % (11.6-14.6)
[2022-06-29 07:04] LABS: CHLORIDE 107 mEq/L (98-107)
[2022-06-29] MEDS ORDERED: ONDANSETRON HCL 4MG/2ML INJ IV PRN (07:15)
[2022-06-29] MEDS ORDERED: PIPERACILLIN/TAZOBACTAM 3.375 G in DEXTROSE 5% WATER 50 ML IV SCH (07:15)
[2022-06-29] MEDS ORDERED: MORPHINE SULFATE 2 MG/ML CPJ (NOT FOR IM USE) IV PRN (07:15)
[2022-06-29] MEDS ORDERED: CLONIDINE 0.1MG TABLET PO PRN (07:15)
[2022-06-29] MEDS ORDERED: SODIUM BICARBONATE 100 MEQ in DEXTROSE 5% WATER 1,000 ML IV SCH (07:45)
[2022-06-29] MEDS ORDERED: PROPOFOL 10MG/ML 100ML 100 ML IV PRN (08:00)
[2022-06-29] MEDS ORDERED: FENTANYL CITRATE/PF 2,500 MCG in SODIUM CHLORIDE 0.9% 250 ML IV SCH ×2 (08:00→08:45)
[2022-06-29] MEDS ORDERED: IPRATROPIUM BROMIDE (0.02%) 0.5MG/2.5ML NEB HHN SCH (08:00)
[2022-06-29 08:04] LABS: PLATELET ESTIMATE NORMAL
[2022-06-29] MEDS ORDERED: VASOPRESSIN 20 UNIT in SODIUM CHLORIDE 0.9% 99 ML IV PRN ×3 (08:15→12:15)
[2022-06-29] MEDS ORDERED: PHENYLEPHRINE 100 MG in DEXT 5% WATER 240 ML IV PRN ×5 (08:45→12:15)
[2022-06-29] MEDS ORDERED: ENOXAPARIN 40MG/0.4ML SYR SUBCUT SCH (09:00)
[2022-06-29] MEDS ORDERED: HYDROCORTISONE SOD SUCCINATE 100 MG/2 ML VIAL IV SCH (10:00)
[2022-06-29 10:41] LABS: BG BASE EXCESS -21.6 mmol/L (-2.0-2.0); BG CARBOXYHEMOGLOBIN 0.3 % (0.5-1.5); BG FRACTION INSPIRED OXYGEN 100; BG HCO3 ACT 11.5 mmol/L (22.0-26.0); BG METHEMOGLOBIN 0.4 % (0.0-1.5); BG OXYHEMOGLOBIN 96.3 % (94.0-97.0); BG PCO2 57.7 mmHg (35.0-45.0); BG PH 6.917 (7.350-7.450); BG PO2 127.4 mmHg (75.0-100.0); BG SAMPLE SITE LEFT BRACHIAL; BG TOTAL HEMOGLOBIN 14.7 g/dL (12.0-18.0); BG TOTAL RESPIRATORY RATE 20 b/min; BG VENT MODE VENT - AC
[2022-06-29 10:48] LABS: AMYLASE 124 IU/L (25-115)
[2022-06-29] MEDS ORDERED: INSULIN REGULAR (DRIP) 100 UNITS in SODIUM CHLORIDE 0.9% 99 ML IV PRN (11:15)
[2022-06-29] MEDS ORDERED: INSULIN REGULAR 100U/100ML PMX 100 ML IV SCH (11:30)
[2022-06-29] MEDS ORDERED: DEXTROSE 50% WATER 50ML SYRINGE IV PRN ×2 (11:30)
[2022-06-29] MEDS ORDERED: DEXT 5%/0.45% NACL 1000ML 1,000 ML IV SCH (11:30)
[2022-06-29] MEDS: BLOOD SUGAR DIAGNOSTIC STRIP TEST SCH ×2 (11:51→12:36)
[2022-06-29] MEDS ORDERED: VANCOMYCIN 500MG PREMIX 100 ML IV NR (12:00)
[2022-06-29] MEDS ORDERED: NOREPINEPHRINE 8MG/250ML PMX 250 ML IV PRN (12:15)
[2022-06-29] MEDS ORDERED: NOREPINEPHRINE 8 MG in DEXTROSE 5% WATER 250 ML IV PRN (12:15)
[2022-06-29] MEDS ORDERED: ATROPINE SULFATE 1MG/10ML SYR ONE (12:45)
[2022-06-29] MEDS ORDERED: CITRIC ACID/SODIUM CITRATE SOLN 30ML UDC PO SCH (13:00)
[2022-06-29] MEDS ORDERED: EPINEPHRINE 0.1MG/ML (1:10,000) 10ML SYR ONE (16:01)
[2022-06-29] MEDS ORDERED: CALCIUM CHLORIDE 1GM/10ML SYR IV ONE (16:01)
[2022-06-29] MEDS ORDERED: SODIUM BICARBONATE 8.4% 1 MEQ/ML 50ML SYR IV ONE (16:01)
[2022-06-29] MEDS ORDERED: DEXTROSE 50% WATER 50ML SYRINGE IV ONE (16:01)
== END 2022-06-29 12:54 | DRG 720 ==
LOC: ER 23:19 → CVICU 06-29 00:38 → EDBEDREQ 06-29 00:42
PROVIDERS: ADMIT Internal Medicine; ATTEND Internal Medicine
PROC: 06HM33Z Insertion of Infusion Device into Right Femoral Vein, Percutaneous Approach (ICD-10-PCS; 2022-06-28)
PROC: B54BZZA Ultrasonography of Right Lower Extremity Veins, Guidance (ICD-10-PCS; 2022-06-28)
PROC: 5A1935Z Respiratory Ventilation, Less than 24 Consecutive Hours (ICD-10-PCS; principal; 2022-06-29)
PROC: 0BH17EZ Insertion of Endotracheal Airway into Trachea, Via Natural or Artificial Opening (ICD-10-PCS; 2022-06-29)
DX: A41.9 Sepsis, unspecified organism (principal); I46.9 Cardiac arrest, cause unspecified; J96.01 Acute respiratory failure with hypoxia; R65.21 Severe sepsis with septic shock; E46 Unspecified protein-calorie malnutrition; E11.10 Type 2 diabetes mellitus with ketoacidosis without coma; G92.8 Other toxic encephalopathy; Z66 Do not resuscitate; I13.0 Hypertensive heart and chronic kidney disease with heart failure and stage 1 through stage 4 chronic kidney disease, or unspecified chronic kidney disease; F25.9 Schizoaffective disorder, unspecified; Z20.822 Contact with and (suspected) exposure to COVID-19; R74.01 Elevation of levels of liver transaminase levels; I50.9 Heart failure, unspecified; E11.22 Type 2 diabetes mellitus with diabetic chronic kidney disease; N18.9 Chronic kidney disease, unspecified; N39.0 Urinary tract infection, site not specified; R13.10 Dysphagia, unspecified; Z74.01 Bed confinement status; Z79.899 Other long term (current) drug therapy; Z93.1 Gastrostomy status; Z68.23 Body mass index [BMI] 23.0-23.9, adult; Q90.9 Down syndrome, unspecified
CPT/HCPCS: 31500; 36415; 36600; 71045; 74018; 80053; 81003; 82010; 82150; 82375; 82805; 82962; 83605; 83880; 84145; 84484; 85025; 87070; 87426; 87804; 93005; 93306; 93970; 94003; 99291; C9803; J0330; J0461; J0692; J1650; J1720; J1815; J2370; J2543; J3010; J3370; J3480; J3490; J7030; J7050; J7060; J7070